=== PATIENT | female | born 1955 | race African-American/Black ===

== ENCOUNTER 2017-08-06 15:33 | Inpatient (IN) | payer MEDICARE, MEDICAID ==
[2017-08-06 16:29] LABS: % EOSINOPHILS 0.8 % (0.0-5.0); % LYMPHOCYTES 15.9 % (20.0-50.0); % MONOCYTES 4.3 % (2.0-10.0); EOSINOPHILE ABSOLUTE 0.1 Th/cmm (0.1-0.4); HEMATOCRIT 40.2 % (41.0-60); MEAN CELL VOLUME 88.5 fl (81-100); MEAN CORPUSCULAR HEMOGLOBIN 28.6 pg (27.0-31.0); MEAN CORPUSCULAR HGB CONC 32.4 pg (28.0-36.0); MEAN PLATELET VOLUME 8.2 fl; MONOCYTE ABSOLUTE 0.5 Th/cmm (0.3-1.0); PLATELET COUNT 247 Th/cmm (150-400); RED BLOOD COUNT 4.54 Mil/cmm (3.80-5.10); RED CELL DISTRIBUTION WIDTH 15.2 % (11.5-20.0)
[2017-08-06 16:38] LABS: WHITE BLOOD COUNT 12.6 Th/cmm (4.8-10.8)
[2017-08-06 16:49] LABS: ALB/GLOB RATIO 1.8 (1.0-1.8); ALBUMIN 4.6 gm/dL (3.7-5.3); ANION GAP 12.8 (7.0-16.0); BILIRUBIN,TOTAL 0.5 mg/dL (0.3-1.0); CALCIUM SERUM 10.3 mg/dL (8.6-10.3); CREATININE - SERUM 1.2 mg/dL (0.6-1.2); GFR AFRICAN-AMERICAN 58.4 ml/min (>90); GFR NON AFRICAN-AMERICAN 48.2 ml/min; POTASSIUM SERUM 3.8 mEq/L (3.5-5.1); TOTAL PROTEIN,SERUM 7.1 gm/dL (6.0-8.3)
--- NOTE | 2017-08-06 17:00 | ED Physician Chart ---
ED Chief Complaint/HPI - Patient Information Date Seen:: 08/06/17 Time Seen:: 16:55 Chief Complaint:: aggressive and disruptive behavior History of Present Illness:: Patient is sent here to be admitted to [facility] for the aggressive, disruptive behavior she was exhibiting at her [facility] facility. Allergies:: Allergies Allergy/AdvReac Type Severity Reaction Status Date / Time No Known Allergies Allergy Verified 08/06/17 16:31 Vitals:: Vital Signs - 8 hr 08/06/17 16:32 Temp 98.6 F HR 105 RR 21 BP 103/78 O2 Sat % 97 Review:: Transfer documents Reviewed ED Review of Systems - Review of Systems General/Constitutional: No fever, No chills Skin: No skin lesions Head: No headache Eyes: No loss of vision ENT: No earache Neck: No neck pain, No swelling Cardio Vascular: No chest pain, No palpitations Pulmonary: No SOB GI: No nausea, No vomiting, No diarrhea G/U: No dysuria Musculoskeletal: No bone or joint pain Endocrine: No polyuria, No polydipsia Psychiatric: Prior psych history, No depression, No anxiety Hematopoietic: No bruising Allergic/Immuno: No urticaria Neurological: Syncope ED Past Medical History - Past Medical History Past Medical History: DM (schizophrenia), Other Family History: Other (unavailable) Social History: Care Facility, Other (former smoker) Surgical History: other (not available) Psychiatricy History: Schizophrenia Medication: Reviewed ED Physical Exam - Physical Examination General/Constitutional: Well-developed, well-nourished, Alert, No distress Other Gen/Cons comments:: Answers minimally Head: Atraumatic Eyes: Lids, conjuctiva normal, PERRL Skin: Nl inspection, No rash, No skin lesions, No ecchymosis ENMT: External ears, nose nl, TM canals nl, Nasal exam nl Other ENMT comments:: Edentulous Neck: No nuchal rigidity Respiratory: Nl effort/Exclusion, Clear to Auscultation, No Wheeze/Rhonchi/Rales Cardio Vascular: RRR, No murmur, gallop, rubs GI: No tenderness/rebounding/guarding, No organomegaly, No hernia, Normal BS's : No CVA tenderness Extremities: Normal digits & nails Neuro/Psych: No focal deficits Misc: No paraspinal tenderness ED Labs/Radiology/EKG Results - Lab Results Results: Laboratory Tests 08/06/17 16:20 WBC 12.6 H RBC 4.54 Hgb 13.0 Hct 40.2 L MCV 88.5 MCH 28.6 MCHC Differential 32.4 RDW 15.2 Plt Count 247 MPV 8.2 Neutrophils % 79.0 Lymphocytes % 15.9 L Monocytes % 4.3 Eosinophils % 0.8 Basophils % 0.0 Laboratory Results - last 24 hr 08/06/17 08/06/17 08/06/17 16:20 16:20 16:20 WBC 12.6 H RBC 4.54 Hgb 13.0 Hct 40.2 L MCV 88.5 MCH 28.6 MCHC Differential 32.4 RDW 15.2 Plt Count 247 MPV 8.2 Neutrophils % 79.0 Lymphocytes % 15.9 L Monocytes % 4.3 Eosinophils % 0.8 Basophils % 0.0 Sodium 129 L Potassium 3.8 Chloride 95 L Carbon Dioxide 25.0 Anion Gap 12.8 BUN 19 Creatinine 1.2 Est GFR ( Amer) 58.4 Est GFR (Non-Af Amer) 48.2 BUN/Creatinine Ratio 15.8 Glucose 98 Whole Bld Lactic Acid Calcium 10.3 Total Bilirubin 0.5 AST 11 L ALT 7 Alkaline Phosphatase 82 Total Protein 7.1 Albumin 4.6 Globulin 2.5 Albumin/Globulin Ratio 1.8 Triglycerides 104 Cholesterol 124 LDL Cholesterol Direct 53 L HDL Cholesterol 52 TSH 1.14 08/06/17 16:20 WBC RBC Hgb Hct MCV MCH MCHC Differential RDW Plt Count MPV Neutrophils % Lymphocytes % Monocytes % Eosinophils % Basophils % Sodium Potassium Chloride Carbon Dioxide Anion Gap BUN Creatinine Est GFR ( Amer) Est GFR (Non-Af Amer) BUN/Creatinine Ratio Glucose Whole Bld Lactic Acid 1.02 Calcium Total Bilirubin AST ALT Alkaline Phosphatase Total Protein Albumin Globulin Albumin/Globulin Ratio Triglycerides Cholesterol LDL Cholesterol Direct HDL Cholesterol TSH ED Septic Shock - . Is Septic Shock (SBP<90, OR Lactate>4 mmol\L) present?: No - <6hrs of presentation: Vital Signs: Vital Signs - 8 hr 08/06/17 16:32 Temp 98.6 F HR 105 RR 21 BP 103/78 O2 Sat % 97 ED Reassessment (Disposition) - Reassessment Reassessment:: Because of the leukocytosis chest x-ray was done which was normal; we're currently trying to get a urinalysis to rule out a urinary tract infection Reassessment Condition:: Unchanged - Diagnosis Diagnosis:: Aggressive behavior; schizophrenia; cytosis - Aftercare/Follow up Instructions Aftercare/Follow-Up Instructions:: Refer to Discharge Instructions - Patient Disposition Admitted to:: [facility] Admitting Medical Physician:: Vamsi Templeton Admitting Psych Physician:: Claudia Viveros Condition at Disposition:: Stable, Unchanged ED Discharge Plan - Patient Disposition Instructions: Psychosis
[2017-08-06 18:24] LABS: URINE MICROSCOPIC INDICATED? YES; URINE SOURCE CLEAN C
[2017-08-06 18:31] LABS: URINE BILIRUBIN NEGATIVE (NEGATIVE); URINE BLOOD NEGATIVE (NEGATIVE); URINE GLUCOSE (UA) NEGATIVE (NEGATIVE); URINE KETONE 15 mg/dL (NEGATIVE); URINE LEUKOCYTE ESTERASE SMALL (NEGATIVE); URINE NITRATE NEGATIVE (NEGATIVE); URINE PROTEIN TRACE mg/dL (NEGATIVE); URINE UROBILINOGEN 0.2 E.U./dL (0.2 - 1.0)
[2017-08-06 18:53] LABS: URINE CLARITY TURBID (CLEAR); URINE COLOR YELLOW
[2017-08-06 18:54] LABS: URINE BACTERIA FEW /hpf (NONE SEEN); URINE EPITHELIAL CELLS MANY /lpf (FEW); URINE RBC NONE SEEN /hpf (0-5)
--- NOTE | 2017-08-06 19:27 | History & Physical ---
ADMIT DATE: 08/06/2017 HISTORY OF PRESENT ILLNESS: The patient is a 62-year-old female with long history of diabetes mellitus, hypertension, hyperlipidemia, COPD, dementia, psychosis, [facility] under Dr. Viveros's service. The patient denies any chest pain, shortness of breath, nausea, vomiting, fever or chills. PAST MEDICAL HISTORY: Significant for hypertension, diabetes mellitus, hyperlipidemia, COPD, psychosis, dementia. PAST SURGICAL HISTORY: No recent surgery. ALLERGIES: None. MEDICATIONS: Follow admission reconciliation. SOCIAL HISTORY: She is an ex-smoker, no alcohol or drug use. FAMILY HISTORY: Noncontributory. REVIEW OF SYSTEMS: RENAL SYSTEM: No history of chronic renal disorder. CARDIOVASCULAR: No coronary artery disease. ENDOCRINE: She has a history of diabetes mellitus, no thyroid problem. GASTROINTESTINAL: No upper or lower gastrointestinal bleed. NEUROLOGICAL: History of dementia, psychosis. MUSCULOSKELETAL : No muscular dystrophy. HEMATOLOGIC: No bleeding tendencies. RESPIRATORY : She has history of COPD. GENITOURINARY: No dysuria or hematuria. PHYSICAL EXAMINATION: GENERAL: She is awake, alert, not fully oriented. VITAL SIGNS: Temperature is 98, heart rate is 88, blood pressure 110/80. HEENT: Normocephalic. Pupils reacting equal to light and accommodation. Sclerae clear. NECK: Supple. Negative for lymphadenopathy, JVD or bruit. CHEST: Bilateral normal. No rhonchi or wheezing. HEART: S1, S2 normal. No murmur, rub, click. ABDOMEN: Soft, bowel sounds positive. EXTREMITIES: No edema. BACK: No tenderness. SKIN: Intact. BREASTS, PELVIC, AND RECTAL: Exam done by primary physician, no complaint. NEUROLOGIC: She is awake, alert, not fully oriented. No focal motor or sensory deficit. Cranial nerves 2-12 is intact. LABORATORY DATA: White blood cell 12.6, hemoglobin 13, hematocrit 40.2, platelet 247. Sodium 129, potassium 3.8, BUN 19, creatinine 1.2. ASSESSMENT: 1. Diabetes mellitus. 2. Hypertension. 3. Hyperlipidemia. 4. Hyponatremia. 5. Dementia. 6. Psychosis. PLAN: The patient admitted to the hospital under Dr. Viveros's service. MEDICAL PROBLEMS ADDRESSED DURING HOSPITALIZATION: Dementia and psychosis. MEDICAL PROBLEMS ADDRESSED AT DISCHARGE: Diabetes mellitus, hypertension, hyperlipidemia. The patient is medically stable for activity. Thank you Dr. Viveros for asking me to see your patient. JOB# [id number]
[2017-08-06] MEDS ORDERED: Magnesium Hydroxide (MOM) 30 mL UDC PO PRN (19:50)
[2017-08-06] MEDS ORDERED: Maalox 30 mL Cup PO PRN (19:50)
[2017-08-06 19:55] LABS: A1C % 5.3 % (4.0-6.0)
[2017-08-06 20:01] VITALS: BP 118/60
[2017-08-06] MEDS ORDERED: Non-Formulary Item 1 EA (Albuterol Sulfate [Ventolin Hfa] 1 PUFF) IH PRN (20:16)
[2017-08-06] MEDS: Atorvastatin Calcium 10 MG TAB PO SCH (21:11)
[2017-08-06] MEDS: INSULIN ASPART SLIDING SCALE 100 UNITS/ML UNIT SUBQ SCH (21:12)
[2017-08-07] MEDS: INSULIN ASPART SLIDING SCALE 100 UNITS/ML UNIT SUBQ SCH ×4 (07:04→21:00)
--- NOTE | 2017-08-07 07:36 | Diagnostic Imaging Report ---
Portable chest x-ray History: Leukocytosis, cough Allowing for portable technique the heart size is normal. No focal pulmonary parenchymal processes. No hilar or mediastinal abnormalities. Impression: No acute abnormalities.
[2017-08-07] MEDS ORDERED: Albuterol Nebulizer 2.5mg/3mL HHN PRN (07:55)
[2017-08-07] MEDS ORDERED: Non-Formulary Item 1 EA (Fluticasone/Vilanterol [Breo Ellipta 200-25 Mcg Inh] 1 EACH) IH SCH (09:00)
[2017-08-07] MEDS ORDERED: LURASIDONE HCL 60 MG PO SCH (09:00)
[2017-08-07] MEDS: Multivitamin Tab PO SCH (09:57)
[2017-08-07] MEDS: Pantoprazole 40 mg EC Tab PO SCH (10:00)
[2017-08-07] MEDS ORDERED: Non-Formulary Item 1 EA (Metformin Hcl [Fortamet] 1,000 MG) PO SCH (17:00)
[2017-08-07] MEDS: Atorvastatin Calcium 10 MG TAB PO SCH (21:00)
--- NOTE | 2017-08-07 23:20 | History & Physical ---
ADMIT DATE: 08/07/2017 IDENTIFYING INFORMATION: The patient is a 62-year-old female. HISTORY OF PRESENT ILLNESS: The patient was send from [facility] because of aggressive behavior, disruptive, psychotic. The patient herself was a poor historian and was unable to participate in a meaningful conversation or tell me anything about her history. She is demented. PAST PSYCHIATRIC HISTORY: Dementia. MEDICAL HISTORY: Hypertension, diabetes mellitus, hyperlipidemia, COPD with history of psychosis and dementia. ALLERGIES: She has no known drug allergies. FAMILY AND SOCIAL HISTORY: Unobtainable. The patient lives in a group home facility. MENTAL STATUS EXAMINATION: The patient is appropriately dressed, not very well groomed. She was in hospital gown. She was in bed, looking disheveled, unable to tell me her age, date, where she was, date of , or any information regarding her background. Unable to participate in memory testing or quite a meaningful conversation. Her long and short term memory is poor. Her insight and judgment is impaired. IMPRESSION: AXIS I: Psychosis, not otherwise specified, dementia. MEDICAL DIAGNOSES: Hypertension, diabetes mellitus, asthma, and hyperlipidemia. Her assets, she is accepting. Negative for coping. INITIAL TREATMENT PLAN: The patient will continue with the Paxil and she is on Clozaril 150 mg twice a day and Risperdal 2.5 mg twice a day. It seems like she is also on Latuda, so we will continue her medications. ESTIMATED LENGTH OF STAY: 3-7 days. DISCHARGE CRITERIA: Decreased psychosis and agitation. After discharge, outpatient treatment. [facility]# [id number]
--- NOTE | 2017-08-08 00:26 | Internal Medicine Prog Note ---
Internal Medicine Subjective - Subjective Service Date: 08/07/17 Patient seen and examined:: without staff Patient is:: awake, verbal, in bed, confused Per staff patient has:: no adverse event Internal Medicine Objective - Results Result Diagrams: 08/06/17 16:20 08/06/17 16:20 Recent Labs: Laboratory Last Values WBC 12.6 Th/cmm (4.8-10.8) H 08/06/17 16:20 RBC 4.54 Mil/cmm (3.80-5.10) 08/06/17 16:20 Hgb 13.0 gm/dL (12-16) 08/06/17 16:20 Hct 40.2 % (41.0-60) L 08/06/17 16:20 MCV 88.5 fl (81-100) 08/06/17 16:20 MCH 28.6 pg (27.0-31.0) 08/06/17 16:20 MCHC Differential 32.4 pg (28.0-36.0) 08/06/17 16:20 RDW 15.2 % (11.5-20.0) 08/06/17 16:20 Plt Count 247 Th/cmm (150-400) 08/06/17 16:20 MPV 8.2 fl 08/06/17 16:20 Neutrophils % 79.0 % (40.0-80.0) 08/06/17 16:20 Lymphocytes % 15.9 % (20.0-50.0) L 08/06/17 16:20 Monocytes % 4.3 % (2.0-10.0) 08/06/17 16:20 Eosinophils % 0.8 % (0.0-5.0) 08/06/17 16:20 Basophils % 0.0 % (0.0-2.0) 08/06/17 16:20 Sodium 129 mEq/L (136-145) L 08/06/17 16:20 Potassium 3.8 mEq/L (3.5-5.1) 08/06/17 16:20 Chloride 95 mEq/L (98-107) L 08/06/17 16:20 Carbon Dioxide 25.0 mEq/L (21.0-31.0) 08/06/17 16:20 Anion Gap 12.8 (7.0-16.0) 08/06/17 16:20 BUN 19 mg/dL (7-25) 08/06/17 16:20 Creatinine 1.2 mg/dL (0.6-1.2) 08/06/17 16:20 Est GFR ( Amer) 58.4 ml/min (>90) 08/06/17 16:20 Est GFR (Non-Af Amer) 48.2 ml/min 08/06/17 16:20 BUN/Creatinine Ratio 15.8 08/06/17 16:20 Glucose 98 mg/dL (70-105) 08/06/17 16:20 POC Glucose 99 MG/DL (70 - 105) 08/07/17 20:36 Hemoglobin A1c % 5.3 % (4.0-6.0) 08/06/17 16:20 Whole Bld Lactic Acid 1.02 mmol/L (0.60-1.99) 08/06/17 16:20 Calcium 10.3 mg/dL (8.6-10.3) 08/06/17 16:20 Total Bilirubin 0.5 mg/dL (0.3-1.0) 08/06/17 16:20 AST 11 U/L (13-39) L 08/06/17 16:20 ALT 7 U/L (7-52) 08/06/17 16:20 Alkaline Phosphatase 82 U/L (34-104) 08/06/17 16:20 Total Protein 7.1 gm/dL (6.0-8.3) 08/06/17 16:20 Albumin 4.6 gm/dL (3.7-5.3) 08/06/17 16:20 Globulin 2.5 gm/dL 08/06/17 16:20 Albumin/Globulin Ratio 1.8 (1.0-1.8) 08/06/17 16:20 Triglycerides 104 mg/dL (<150) 08/06/17 16:20 Cholesterol 124 mg/dL (<200) 08/06/17 16:20 LDL Cholesterol Direct 53 mg/dL (75-193) L 08/06/17 16:20 HDL Cholesterol 52 mg/dL (23-92) 08/06/17 16:20 TSH 1.14 uIU/ml (0.34-5.60) 08/06/17 16:20 Urine Source CLEAN C 08/06/17 17:30 Urine Color YELLOW 08/06/17 17:30 Urine Clarity TURBID (CLEAR) H 08/06/17 17:30 Urine pH 6.0 (4.6 - 8.0) 08/06/17 17:30 Ur Specific [place] 1.010 (1.005-1.030) 08/06/17 17:30 Urine Protein TRACE mg/dL (NEGATIVE) 08/06/17 17:30 Urine Glucose (UA) NEGATIVE mg/dL (NEGATIVE) 08/06/17 17:30 Urine Ketones 15 mg/dL (NEGATIVE) H 08/06/17 17:30 Urine Blood NEGATIVE (NEGATIVE) 08/06/17 17:30 Urine Nitrate NEGATIVE (NEGATIVE) 08/06/17 17:30 Urine Bilirubin NEGATIVE (NEGATIVE) 08/06/17 17:30 Urine Urobilinogen 0.2 E.U./dL (0.2 - 1.0) 08/06/17 17:30 Ur Leukocyte Esterase SMALL (NEGATIVE) H 08/06/17 17:30 Urine RBC NONE SEEN /hpf (0-5) 08/06/17 17:30 Urine WBC 6-10 /hpf (0-5) H 08/06/17 17:30 Ur Epithelial Cells MANY /lpf (FEW) 08/06/17 17:30 Urine Bacteria FEW /hpf (NONE SEEN) 08/06/17 17:30 RPR NONREACTIVE (NONREACTIVE) 08/06/17 16:20 - Physical Exam Vitals and I&O: Vital Signs Temp 98.1 F 08/07/17 16:21 Pulse 85 08/07/17 16:21 Resp 20 08/07/17 16:21 BP 122/67 08/07/17 16:21 Pulse Ox 99 08/07/17 16:21 Intake & Output 08/07/17 08/07/17 08/08/17 06:59 18:59 06:59 Intake Total 560 500 Balance 560 500 Intake: Oral 560 500 Other: # Voids 1 2 Active Medications: Current Medications Acetaminophen (Tylenol) 650 mg PO Q4HR PRN PRN Reason: Mild Pain / Temp above 100 Stop: 10/05/17 19:49 Last Admin: 08/07/17 18:47 Dose: 650 mg Al Hydrox/Mg Hydrox/Simethicone (Maalox) 30 ml PO Q4HR PRN PRN Reason: GI DISTRESS Stop: 10/05/17 19:49 Albuterol Sulfate (Albuterol 2.5mg/3ml Neb Ud) 2.5 mg HHN Q4H PRN PRN Reason: Shortness of Breath Stop: 10/06/17 07:54 Albuterol Sulfate (Albuterol 2.5mg/3ml Neb Ud) 2.5 mg HHN Q6HRT VERONIQUE Stop: 10/06/17 12:59 Amlodipine Besylate (Norvasc) 10 mg PO DAILY VERONIQUE Stop: 10/06/17 08:59 Last Admin: 08/07/17 10:26 Dose: 10 mg Atorvastatin Calcium (Lipitor) 20 mg PO HS VERONIQUE Stop: 10/05/17 20:59 Last Admin: 08/07/17 21:00 Dose: Not Given Benztropine Mesylate (Cogentin) 0.5 mg PO BID VERONIQUE Stop: 10/06/17 08:59 Last Admin: 08/07/17 16:49 Dose: 0.5 mg Budesonide (Pulmicort) 0.5 mg HHN BIDRT VERONIQUE Stop: 10/06/17 08:59 Clozapine (Clozaril) 150 mg PO BID VERONIQUE Stop: 10/06/17 14:59 Last Admin: 08/07/17 18:47 Dose: Not Given Insulin Aspart (Novolog Insulin Sliding Scale) 0 units SUBQ ACHS VERONIQUE PRN Reason: Protocol Stop: 10/05/17 20:59 Last Admin: 08/07/17 21:00 Dose: Not Given Lorazepam (Ativan) 0.5 mg PO Q4HR PRN; Protocol PRN Reason: Anxiety Stop: 09/05/17 19:49 Magnesium Hydroxide (Milk Of Magnesia) 30 ml PO HS PRN PRN Reason: Constipation Metformin HCl (Glucophage) 1,000 mg PO BIDWM VERONIQUE Stop: 10/06/17 08:59 Last Admin: 08/07/17 18:43 Dose: 1,000 mg Miscellaneous (Lurasidone Hcl [Latuda]) 60 mg PO DAILY VERONIQUE Stop: 10/06/17 08:59 Multivitamins/Vitamin C (Theragran) 1 tab PO DAILY VERONIQUE Stop: 10/06/17 08:59 Last Admin: 08/07/17 09:57 Dose: 1 tab Pantoprazole Sodium (Protonix) 40 mg PO QDAC VERONIQUE Stop: 10/06/17 08:59 Last Admin: 08/07/17 10:00 Dose: 40 mg Paroxetine HCl (Paxil) 40 mg PO DAILY VERONIQUE PRN Reason: Protocol Stop: 10/06/17 08:59 Last Admin: 08/07/17 09:57 Dose: 40 mg Pioglitazone HCl (Actos) 30 mg PO DAILY VERONIQUE Stop: 10/06/17 08:59 Last Admin: 08/07/17 09:57 Dose: 30 mg Risperidone (Risperdal) 2.5 mg PO BID VERONIQUE PRN Reason: Protocol Stop: 10/06/17 08:59 Last Admin: 08/07/17 18:47 Dose: Not Given Sitagliptin Phosphate (Januvia) 100 mg PO DAILY [facility] Stop: 10/06/17 08:59 Last Admin: 08/07/17 09:56 Dose: 100 mg Zolpidem Tartrate (Ambien) 5 mg PO HS PRN PRN Reason: Insomnia Stop: 10/05/17 19:49 Last Admin: 08/06/17 21:11 Dose: 5 mg General: demented HEENT: NC/AT, PERRLA, anicteric sclerae, throat clear Neck: Supple, No JVD, No thyromegaly, +2 carotid pulse wo bruit, No LAD Lungs: CTAB Cardiovascular: RRR, Normal S1, Normal S2, without murmur Abdomen: non-tender, non-distended Neurological: no change Internal Medicine Assmt/Plan - Assessment Assessment: 1.DM. 2.HTN 3.HYPERLIPIDEMEA. 4.DEMENTIA. - Plan Plan: CONTINUE ON CURRENT MEDICATION AND DIET.
[2017-08-08] MEDS: Budesonide 0.5 Mg/2 mL Ud HHN SCH ×2 (06:00→20:28)
[2017-08-08] MEDS: Albuterol Nebulizer 2.5mg/3mL HHN SCH ×3 (06:00→20:25)
[2017-08-08] MEDS: Pantoprazole 40 mg EC Tab PO SCH (06:36)
[2017-08-08] MEDS: INSULIN ASPART SLIDING SCALE 100 UNITS/ML UNIT SUBQ SCH ×4 (06:36→22:09)
[2017-08-08] MEDS ORDERED: Non-Formulary Item 1 EA (Sitagliptin Phosphate [Januvia] 100 MG) PO SCH (09:00)
[2017-08-08] MEDS: Multivitamin Tab PO SCH (09:49)
--- NOTE | 2017-08-08 15:25 | General Progress Note ---
Subjective - Review of Systems Service Date: 08/08/17 Subjective: resting comfortably no distress Objective - Results Result Diagrams: 08/06/17 16:20 08/06/17 16:20 Recent Labs: Laboratory Last Values WBC 12.6 Th/cmm (4.8-10.8) H 08/06/17 16:20 RBC 4.54 Mil/cmm (3.80-5.10) 08/06/17 16:20 Hgb 13.0 gm/dL (12-16) 08/06/17 16:20 Hct 40.2 % (41.0-60) L 08/06/17 16:20 MCV 88.5 fl (81-100) 08/06/17 16:20 MCH 28.6 pg (27.0-31.0) 08/06/17 16:20 MCHC Differential 32.4 pg (28.0-36.0) 08/06/17 16:20 RDW 15.2 % (11.5-20.0) 08/06/17 16:20 Plt Count 247 Th/cmm (150-400) 08/06/17 16:20 MPV 8.2 fl 08/06/17 16:20 Neutrophils % 79.0 % (40.0-80.0) 08/06/17 16:20 Lymphocytes % 15.9 % (20.0-50.0) L 08/06/17 16:20 Monocytes % 4.3 % (2.0-10.0) 08/06/17 16:20 Eosinophils % 0.8 % (0.0-5.0) 08/06/17 16:20 Basophils % 0.0 % (0.0-2.0) 08/06/17 16:20 Sodium 129 mEq/L (136-145) L 08/06/17 16:20 Potassium 3.8 mEq/L (3.5-5.1) 08/06/17 16:20 Chloride 95 mEq/L (98-107) L 08/06/17 16:20 Carbon Dioxide 25.0 mEq/L (21.0-31.0) 08/06/17 16:20 Anion Gap 12.8 (7.0-16.0) 08/06/17 16:20 BUN 19 mg/dL (7-25) 08/06/17 16:20 Creatinine 1.2 mg/dL (0.6-1.2) 08/06/17 16:20 Est GFR ( Amer) 58.4 ml/min (>90) 08/06/17 16:20 Est GFR (Non-Af Amer) 48.2 ml/min 08/06/17 16:20 BUN/Creatinine Ratio 15.8 08/06/17 16:20 Glucose 98 mg/dL (70-105) 08/06/17 16:20 POC Glucose 99 MG/DL (70 - 105) 08/07/17 20:36 Hemoglobin A1c % 5.3 % (4.0-6.0) 08/06/17 16:20 Whole Bld Lactic Acid 1.02 mmol/L (0.60-1.99) 08/06/17 16:20 Calcium 10.3 mg/dL (8.6-10.3) 08/06/17 16:20 Total Bilirubin 0.5 mg/dL (0.3-1.0) 08/06/17 16:20 AST 11 U/L (13-39) L 08/06/17 16:20 ALT 7 U/L (7-52) 08/06/17 16:20 Alkaline Phosphatase 82 U/L (34-104) 08/06/17 16:20 Total Protein 7.1 gm/dL (6.0-8.3) 08/06/17 16:20 Albumin 4.6 gm/dL (3.7-5.3) 08/06/17 16:20 Globulin 2.5 gm/dL 08/06/17 16:20 Albumin/Globulin Ratio 1.8 (1.0-1.8) 08/06/17 16:20 Triglycerides 104 mg/dL (<150) 08/06/17 16:20 Cholesterol 124 mg/dL (<200) 08/06/17 16:20 LDL Cholesterol Direct 53 mg/dL (75-193) L 08/06/17 16:20 HDL Cholesterol 52 mg/dL (23-92) 08/06/17 16:20 TSH 1.14 uIU/ml (0.34-5.60) 08/06/17 16:20 Urine Source CLEAN C 08/06/17 17:30 Urine Color YELLOW 08/06/17 17:30 Urine Clarity TURBID (CLEAR) H 08/06/17 17:30 Urine pH 6.0 (4.6 - 8.0) 08/06/17 17:30 Ur Specific [place] 1.010 (1.005-1.030) 08/06/17 17:30 Urine Protein TRACE mg/dL (NEGATIVE) 08/06/17 17:30 Urine Glucose (UA) NEGATIVE mg/dL (NEGATIVE) 08/06/17 17:30 Urine Ketones 15 mg/dL (NEGATIVE) H 08/06/17 17:30 Urine Blood NEGATIVE (NEGATIVE) 08/06/17 17:30 Urine Nitrate NEGATIVE (NEGATIVE) 08/06/17 17:30 Urine Bilirubin NEGATIVE (NEGATIVE) 08/06/17 17:30 Urine Urobilinogen 0.2 E.U./dL (0.2 - 1.0) 08/06/17 17:30 Ur Leukocyte Esterase SMALL (NEGATIVE) H 08/06/17 17:30 Urine RBC NONE SEEN /hpf (0-5) 08/06/17 17:30 Urine WBC 6-10 /hpf (0-5) H 08/06/17 17:30 Ur Epithelial Cells MANY /lpf (FEW) 08/06/17 17:30 Urine Bacteria FEW /hpf (NONE SEEN) 08/06/17 17:30 RPR NONREACTIVE (NONREACTIVE) 08/06/17 16:20 - Physical Exam Vitals and I&O: Vital Signs Temp 98.8 F 08/08/17 07:28 Pulse 110 08/08/17 11:31 Resp 16 08/08/17 11:31 BP 101/60 08/08/17 09:53 Pulse Ox 88 08/08/17 11:31 Intake & Output 08/07/17 08/08/17 08/08/17 18:59 06:59 18:59 Intake Total 500 320 Balance 500 320 Intake: Oral 500 320 Other: # Voids 2 2 Active Medications: Current Medications Acetaminophen (Tylenol) 650 mg PO Q4HR PRN PRN Reason: Mild Pain / Temp above 100 Stop: 10/05/17 19:49 Last Admin: 08/07/17 18:47 Dose: 650 mg Al Hydrox/Mg Hydrox/Simethicone (Maalox) 30 ml PO Q4HR PRN PRN Reason: GI DISTRESS Stop: 10/05/17 19:49 Albuterol Sulfate (Albuterol 2.5mg/3ml Neb Ud) 2.5 mg HHN Q4H PRN PRN Reason: Shortness of Breath Stop: 10/06/17 07:54 Albuterol Sulfate (Albuterol 2.5mg/3ml Neb Ud) 2.5 mg HHN Q6HRT VERONIQUE Stop: 10/06/17 12:59 Last Admin: 08/08/17 11:31 Dose: 2.5 mg Amlodipine Besylate (Norvasc) 10 mg PO DAILY VERONIQUE Stop: 10/06/17 08:59 Last Admin: 08/08/17 09:53 Dose: Not Given Atorvastatin Calcium (Lipitor) 20 mg PO HS VERONIQUE Stop: 10/05/17 20:59 Last Admin: 08/07/17 21:00 Dose: Not Given Benztropine Mesylate (Cogentin) 0.5 mg PO BID VERONIQUE Stop: 10/06/17 08:59 Last Admin: 08/08/17 09:51 Dose: 0.5 mg Budesonide (Pulmicort) 0.5 mg HHN BIDRT VERONIQUE Stop: 10/06/17 08:59 Last Admin: 08/08/17 06:00 Dose: 0.5 mg Clozapine (Clozaril) 150 mg PO BID VERONIQUE Stop: 10/06/17 14:59 Last Admin: 08/08/17 09:50 Dose: 150 mg Insulin Aspart (Novolog Insulin Sliding Scale) 0 units SUBQ ACHS VERONIQUE PRN Reason: Protocol Stop: 10/05/17 20:59 Last Admin: 08/08/17 11:45 Dose: Not Given Lorazepam (Ativan) 0.5 mg PO Q4HR PRN; Protocol PRN Reason: Anxiety Stop: 09/05/17 19:49 Magnesium Hydroxide (Milk Of Magnesia) 30 ml PO HS PRN PRN Reason: Constipation Metformin HCl (Glucophage) 1,000 mg PO BIDWM VERONIQUE Stop: 10/06/17 08:59 Last Admin: 08/08/17 09:00 Dose: 1,000 mg Miscellaneous (Lurasidone Hcl [Latuda]) 60 mg PO DAILY VERONIQUE Stop: 10/06/17 08:59 Multivitamins/Vitamin C (Theragran) 1 tab PO DAILY VERONIQUE Stop: 10/06/17 08:59 Last Admin: 08/08/17 09:49 Dose: 1 tab Pantoprazole Sodium (Protonix) 40 mg PO QDAC VERONIQUE Stop: 10/06/17 08:59 Last Admin: 08/08/17 06:36 Dose: 40 mg Paroxetine HCl (Paxil) 40 mg PO DAILY VERONIQUE PRN Reason: Protocol Stop: 10/06/17 08:59 Last Admin: 08/08/17 09:50 Dose: 40 mg Pioglitazone HCl (Actos) 30 mg PO DAILY VERONIQUE Stop: 10/06/17 08:59 Last Admin: 08/08/17 09:50 Dose: 30 mg Risperidone (Risperdal) 2.5 mg PO BID VERONIQUE PRN Reason: Protocol Stop: 10/06/17 08:59 Last Admin: 08/08/17 09:51 Dose: 2.5 mg Sitagliptin Phosphate (Januvia) 100 mg PO DAILY [facility] Stop: 10/06/17 08:59 Last Admin: 08/08/17 09:54 Dose: 100 mg Zolpidem Tartrate (Ambien) 5 mg PO HS PRN PRN Reason: Insomnia Stop: 10/05/17 19:49 Last Admin: 08/06/17 21:11 Dose: 5 mg General: No acute distress HEENT: Atraumatic, PERRLA Neck: Supple, JVD Cardiovascular: Regular rate, Normal S1, Normal S2 Lungs: Clear to auscultation Abdomen: Bowel sounds, Soft Assessment/Plan - Problem List Patient Problems: All Active Problems AGGRESSIVE AND DISRUPTIVE BEHAVIOR (Acute) - Assessment Assessment: 1.DM. 2.HTN 3.HYPERLIPIDEMEA. 4.DEMENTIA. - Plan Plan: cont current treatment
--- NOTE | 2017-08-08 17:21 | Progress Notes ---
DATE: 08/08/[address] Viveros. Case was discussed with staff of the patient, reviewed records. The patient continues to be unpredictable, impulsive, responding to internal stimuli. Continues to have poor insight. Continues to be unable to make safe plan for self-care. Continues to be very agitated. No side effects with the medication, no sedation, no nausea, no extrapyramidal symptoms. The patient is a poor historian, but however, she is a bit more clear today seem like she is back on her medication. We will continue to work with the patient in group therapy, milieu therapy, adjust the medication as needed. JOB# [id number]
[2017-08-08] MEDS: Atorvastatin Calcium 10 MG TAB PO SCH (22:09)
[2017-08-09] MEDS: Albuterol Nebulizer 2.5mg/3mL HHN SCH ×4 (01:43→19:27)
[2017-08-09] MEDS: Budesonide 0.5 Mg/2 mL Ud HHN SCH ×2 (06:36→19:27)
[2017-08-09] MEDS: INSULIN ASPART SLIDING SCALE 100 UNITS/ML UNIT SUBQ SCH ×4 (06:37→21:57)
[2017-08-09] MEDS: Pantoprazole 40 mg EC Tab PO SCH (06:37)
--- NOTE | 2017-08-09 08:25 | General Progress Note ---
Subjective - Review of Systems Service Date: 08/09/17 Subjective: resting comfortably no distress c/o suprapubic pain Objective - Results Result Diagrams: 08/06/17 16:20 08/06/17 16:20 Recent Labs: Laboratory Last Values WBC 12.6 Th/cmm (4.8-10.8) H 08/06/17 16:20 RBC 4.54 Mil/cmm (3.80-5.10) 08/06/17 16:20 Hgb 13.0 gm/dL (12-16) 08/06/17 16:20 Hct 40.2 % (41.0-60) L 08/06/17 16:20 MCV 88.5 fl (81-100) 08/06/17 16:20 MCH 28.6 pg (27.0-31.0) 08/06/17 16:20 MCHC Differential 32.4 pg (28.0-36.0) 08/06/17 16:20 RDW 15.2 % (11.5-20.0) 08/06/17 16:20 Plt Count 247 Th/cmm (150-400) 08/06/17 16:20 MPV 8.2 fl 08/06/17 16:20 Neutrophils % 79.0 % (40.0-80.0) 08/06/17 16:20 Lymphocytes % 15.9 % (20.0-50.0) L 08/06/17 16:20 Monocytes % 4.3 % (2.0-10.0) 08/06/17 16:20 Eosinophils % 0.8 % (0.0-5.0) 08/06/17 16:20 Basophils % 0.0 % (0.0-2.0) 08/06/17 16:20 Sodium 129 mEq/L (136-145) L 08/06/17 16:20 Potassium 3.8 mEq/L (3.5-5.1) 08/06/17 16:20 Chloride 95 mEq/L (98-107) L 08/06/17 16:20 Carbon Dioxide 25.0 mEq/L (21.0-31.0) 08/06/17 16:20 Anion Gap 12.8 (7.0-16.0) 08/06/17 16:20 BUN 19 mg/dL (7-25) 08/06/17 16:20 Creatinine 1.2 mg/dL (0.6-1.2) 08/06/17 16:20 Est GFR ( Amer) 58.4 ml/min (>90) 08/06/17 16:20 Est GFR (Non-Af Amer) 48.2 ml/min 08/06/17 16:20 BUN/Creatinine Ratio 15.8 08/06/17 16:20 Glucose 98 mg/dL (70-105) 08/06/17 16:20 POC Glucose 99 MG/DL (70 - 105) 08/07/17 20:36 Hemoglobin A1c % 5.3 % (4.0-6.0) 08/06/17 16:20 Whole Bld Lactic Acid 1.02 mmol/L (0.60-1.99) 08/06/17 16:20 Calcium 10.3 mg/dL (8.6-10.3) 08/06/17 16:20 Total Bilirubin 0.5 mg/dL (0.3-1.0) 08/06/17 16:20 AST 11 U/L (13-39) L 08/06/17 16:20 ALT 7 U/L (7-52) 08/06/17 16:20 Alkaline Phosphatase 82 U/L (34-104) 08/06/17 16:20 Total Protein 7.1 gm/dL (6.0-8.3) 08/06/17 16:20 Albumin 4.6 gm/dL (3.7-5.3) 08/06/17 16:20 Globulin 2.5 gm/dL 08/06/17 16:20 Albumin/Globulin Ratio 1.8 (1.0-1.8) 08/06/17 16:20 Triglycerides 104 mg/dL (<150) 08/06/17 16:20 Cholesterol 124 mg/dL (<200) 08/06/17 16:20 LDL Cholesterol Direct 53 mg/dL (75-193) L 08/06/17 16:20 HDL Cholesterol 52 mg/dL (23-92) 08/06/17 16:20 TSH 1.14 uIU/ml (0.34-5.60) 08/06/17 16:20 Urine Source CLEAN C 08/06/17 17:30 Urine Color YELLOW 08/06/17 17:30 Urine Clarity TURBID (CLEAR) H 08/06/17 17:30 Urine pH 6.0 (4.6 - 8.0) 08/06/17 17:30 Ur Specific [place] 1.010 (1.005-1.030) 08/06/17 17:30 Urine Protein TRACE mg/dL (NEGATIVE) 08/06/17 17:30 Urine Glucose (UA) NEGATIVE mg/dL (NEGATIVE) 08/06/17 17:30 Urine Ketones 15 mg/dL (NEGATIVE) H 08/06/17 17:30 Urine Blood NEGATIVE (NEGATIVE) 08/06/17 17:30 Urine Nitrate NEGATIVE (NEGATIVE) 08/06/17 17:30 Urine Bilirubin NEGATIVE (NEGATIVE) 08/06/17 17:30 Urine Urobilinogen 0.2 E.U./dL (0.2 - 1.0) 08/06/17 17:30 Ur Leukocyte Esterase SMALL (NEGATIVE) H 08/06/17 17:30 Urine RBC NONE SEEN /hpf (0-5) 08/06/17 17:30 Urine WBC 6-10 /hpf (0-5) H 08/06/17 17:30 Ur Epithelial Cells MANY /lpf (FEW) 08/06/17 17:30 Urine Bacteria FEW /hpf (NONE SEEN) 08/06/17 17:30 RPR NONREACTIVE (NONREACTIVE) 08/06/17 16:20 - Physical Exam Vitals and I&O: Vital Signs Temp 98 F 08/09/17 06:38 Pulse 98 08/09/17 06:38 Resp 19 08/09/17 06:38 BP 115/68 08/09/17 06:38 Pulse Ox 98 08/09/17 06:38 Intake & Output 08/08/17 08/09/17 08/09/17 18:59 06:59 18:59 Intake Total 820 360 Balance 820 360 Intake: Oral 820 360 Other: # Voids 3 2 Active Medications: Current Medications Acetaminophen (Tylenol) 650 mg PO Q4HR PRN PRN Reason: Mild Pain / Temp above 100 Stop: 10/05/17 19:49 Last Admin: 08/07/17 18:47 Dose: 650 mg Al Hydrox/Mg Hydrox/Simethicone (Maalox) 30 ml PO Q4HR PRN PRN Reason: GI DISTRESS Stop: 10/05/17 19:49 Albuterol Sulfate (Albuterol 2.5mg/3ml Neb Ud) 2.5 mg HHN Q4H PRN PRN Reason: Shortness of Breath Stop: 10/06/17 07:54 Albuterol Sulfate (Albuterol 2.5mg/3ml Neb Ud) 2.5 mg HHN Q6HRT [facility] Stop: 10/06/17 12:59 Last Admin: 08/09/17 06:36 Dose: 2.5 mg Amlodipine Besylate (Norvasc) 10 mg PO DAILY [facility] Stop: 10/06/17 08:59 Last Admin: 08/08/17 09:53 Dose: Not Given Atorvastatin Calcium (Lipitor) 20 mg PO HS [facility] Stop: 10/05/17 20:59 Last Admin: 08/08/17 22:09 Dose: 20 mg Benztropine Mesylate (Cogentin) 0.5 mg PO BID [facility] Stop: 10/06/17 08:59 Last Admin: 08/08/17 16:21 Dose: 0.5 mg Budesonide (Pulmicort) 0.5 mg HHN BIDRT [facility] Stop: 10/06/17 08:59 Last Admin: 08/09/17 06:36 Dose: 0.5 mg Clozapine (Clozaril) 150 mg PO BID [facility] Stop: 10/06/17 14:59 Last Admin: 08/08/17 16:21 Dose: 150 mg Insulin Aspart (Novolog Insulin Sliding Scale) 0 units SUBQ ACHS [facility] PRN Reason: Protocol Stop: 10/05/17 20:59 Last Admin: 08/09/17 06:37 Dose: Not Given Lorazepam (Ativan) 0.5 mg PO Q4HR PRN; Protocol PRN Reason: Anxiety Stop: 09/05/17 19:49 Magnesium Hydroxide (Milk Of Magnesia) 30 ml PO HS PRN PRN Reason: Constipation Metformin HCl (Glucophage) 1,000 mg PO BIDWM [facility] Stop: 10/06/17 08:59 Last Admin: 08/09/17 08:07 Dose: 1,000 mg Miscellaneous (Lurasidone Hcl [Latuda]) 60 mg PO DAILY [facility] Stop: 10/06/17 08:59 Multivitamins/Vitamin C (Theragran) 1 tab PO DAILY [facility] Stop: 10/06/17 08:59 Last Admin: 08/08/17 09:49 Dose: 1 tab Pantoprazole Sodium (Protonix) 40 mg PO QDAC [facility] Stop: 10/06/17 08:59 Last Admin: 08/09/17 06:37 Dose: 40 mg Paroxetine HCl (Paxil) 40 mg PO DAILY [facility] PRN Reason: Protocol Stop: 10/06/17 08:59 Last Admin: 08/08/17 09:50 Dose: 40 mg Pioglitazone HCl (Actos) 30 mg PO DAILY [facility] Stop: 10/06/17 08:59 Last Admin: 08/08/17 09:50 Dose: 30 mg Risperidone (Risperdal) 2.5 mg PO BID [facility] PRN Reason: Protocol Stop: 10/06/17 08:59 Last Admin: 08/08/17 16:21 Dose: 2.5 mg Sitagliptin Phosphate (Januvia) 100 mg PO DAILY [facility] Stop: 10/06/17 08:59 Last Admin: 08/08/17 09:54 Dose: 100 mg Zolpidem Tartrate (Ambien) 5 mg PO HS PRN PRN Reason: Insomnia Stop: 10/05/17 19:49 Last Admin: 08/06/17 21:11 Dose: 5 mg General: No acute distress HEENT: Atraumatic, PERRLA Neck: Supple, JVD Cardiovascular: Regular rate, Normal S1, Normal S2 Lungs: Clear to auscultation Abdomen: Bowel sounds, Soft Assessment/Plan - Problem List Patient Problems: All Active Problems AGGRESSIVE AND DISRUPTIVE BEHAVIOR (Acute) - Assessment Assessment: 1.DM. 2.HTN 3.HYPERLIPIDEMEA. 4.DEMENTIA. - Plan Plan: cont current treatment order U/A
[2017-08-09] MEDS: Multivitamin Tab PO SCH (08:51)
[2017-08-09 16:02] LABS: URINE MICROSCOPIC INDICATED? YES; URINE SOURCE CLEAN C
[2017-08-09 16:07] LABS: URINE BILIRUBIN NEGATIVE (NEGATIVE); URINE BLOOD NEGATIVE (NEGATIVE); URINE GLUCOSE (UA) NEGATIVE (NEGATIVE); URINE KETONE NEGATIVE (NEGATIVE); URINE LEUKOCYTE ESTERASE NEGATIVE (NEGATIVE); URINE NITRATE NEGATIVE (NEGATIVE); URINE PROTEIN TRACE mg/dL (NEGATIVE); URINE UROBILINOGEN 0.2 E.U./dL (0.2 - 1.0)
[2017-08-09 16:09] LABS: URINE CLARITY CLEAR (CLEAR); URINE COLOR YELLOW
[2017-08-09 16:10] LABS: URINE BACTERIA FEW /hpf (NONE SEEN); URINE EPITHELIAL CELLS OCCASIONAL /lpf (FEW); URINE RBC NONE SEEN /hpf (0-5)
[2017-08-09] MEDS: Atorvastatin Calcium 10 MG TAB PO SCH (21:49)
--- NOTE | 2017-08-09 23:22 | Progress Notes ---
DATE: 08/09/[address] Viveros. Case was discussed with staff of the patient, reviewed records. The patient continues to be internally preoccupied, confused, continues to stay to herself, unable to make safe plan for self-care, unpredictable, impulsive, and with history of schizophrenia. No side effects of the medication, no sedation, no nausea. No constipation. We will continue the patient with group therapy, milieu therapy, and adjust medications. JOB# [id number]
[2017-08-10] MEDS: Albuterol Nebulizer 2.5mg/3mL HHN SCH ×4 (01:00→20:59)
[2017-08-10] MEDS: Pantoprazole 40 mg EC Tab PO SCH (06:30)
[2017-08-10] MEDS: INSULIN ASPART SLIDING SCALE 100 UNITS/ML UNIT SUBQ SCH ×4 (06:30→22:00)
[2017-08-10] MEDS: Budesonide 0.5 Mg/2 mL Ud HHN SCH ×2 (06:35→21:00)
[2017-08-10] MEDS: Multivitamin Tab PO SCH (08:54)
[2017-08-10 09:36] LABS: % BASOPHILS 0.8 % (0.0-2.0); % EOSINOPHILS 0.9 % (0.0-5.0); % NEUTROPHILS 69.3 % (40.0-80.0); BASOPHILE ABSOLUTE 0.1 Th/cumm (0-0.2); EOSINOPHILE ABSOLUTE 0.1 Th/cmm (0.1-0.4); HEMATOCRIT 38.9 % (41.0-60); HEMOGLOBIN 12.9 gm/dL (12-16); LYMPHOCYTE ABSOLUTE 2.5 Th/cmm (1.5-3.0); MEAN CELL VOLUME 89.2 fl (81-100); MEAN CORPUSCULAR HEMOGLOBIN 29.6 pg (27.0-31.0); MEAN CORPUSCULAR HGB CONC 33.2 pg (28.0-36.0); MEAN PLATELET VOLUME 8.4 fl; MONOCYTE ABSOLUTE 0.4 Th/cmm (0.3-1.0); NEUTROPHILE ABSOLUTE 6.7 Th/cmm (1.8-8.0); PLATELET COUNT 265 Th/cmm (150-400); RED BLOOD COUNT 4.37 Mil/cmm (3.80-5.10); RED CELL DISTRIBUTION WIDTH 15.3 % (11.5-20.0)
[2017-08-10 09:39] LABS: WHITE BLOOD COUNT 9.8 Th/cmm (4.8-10.8)
[2017-08-10 09:49] LABS: ANION GAP 10.9 (7.0-16.0); BUN - UREA NITROGEN 8 mg/dL (7-25); CALCIUM SERUM 9.9 mg/dL (8.6-10.3); CHLORIDE 98 mEq/L (98-107); CREATININE - SERUM 0.7 mg/dL (0.6-1.2); GFR AFRICAN-AMERICAN > 60.0 ml/min (>90); GFR NON AFRICAN-AMERICAN > 60.0 ml/min; GLUCOSE 140 mg/dL (70-105); POTASSIUM SERUM 3.9 mEq/L (3.5-5.1); SODIUM SERUM 134 mEq/L (136-145)
[2017-08-10] MEDS: Atorvastatin Calcium 10 MG TAB PO SCH (22:00)
--- NOTE | 2017-08-10 23:02 | Progress Notes ---
DATE: 08/10/2017 PSYCHIATRIC PROGRESS NOTE Chart reviewed. The patient interviewed. Also discussed the patient's condition with the staff and reviewed records and labs. The patient is still agitated and she is still anxious and in irritable mood. The patient also is slightly confused and needs lots of redirections. She also is still restless and she is still anxious. Otherwise, the patient is compliant with taking her medications with no side effects of medications. ASSESSMENT: The patient is still confused and irritable. TREATMENT PLAN: Continue to monitor her behavior and her condition closely. Also, continue to work on her irritability and adjusting psychotropic medications and continue to follow up. JOB# [id number]
--- NOTE | 2017-08-10 23:20 | Internal Medicine Prog Note ---
Internal Medicine Subjective - Subjective Service Date: 08/10/17 Patient seen and examined:: without staff Patient is:: awake, verbal, in bed, confused Per staff patient has:: no adverse event Internal Medicine Objective - Results Result Diagrams: 08/10/17 09:18 08/10/17 09:18 Recent Labs: Laboratory Last Values WBC 9.8 Th/cmm (4.8-10.8) D 08/10/17 09:18 RBC 4.37 Mil/cmm (3.80-5.10) 08/10/17 09:18 Hgb 12.9 gm/dL (12-16) 08/10/17 09:18 Hct 38.9 % (41.0-60) L 08/10/17 09:18 MCV 89.2 fl (81-100) 08/10/17 09:18 MCH 29.6 pg (27.0-31.0) 08/10/17 09: MCHC Differential 33.2 pg (28.0-36.0) 08/10/17:18 RDW 15.3 % (11.5-20.0) 08/10/17 09:18 Plt Count 265 Th/cmm (150-400) 08/10/17 09:18 MPV 8.4 fl 08/10/17 09:18 Neutrophils % 69.3 % (40.0-80.0) 08/10/17 09:18 Lymphocytes % 25.0 % (20.0-50.0) 08/10/17 09:18 Monocytes % 4.0 % (2.0-10.0) 08/10/17 09:18 Eosinophils % 0.9 % (0.0-5.0) 08/10/17 09:18 Basophils % 0.8 % (0.0-2.0) 08/10/17 09:18 Sodium 134 mEq/L (136-145) L 08/10/17 09:18 Potassium 3.9 mEq/L (3.5-5.1) 08/10/17 09:18 Chloride 98 mEq/L (98-107) 08/10/17 09:18 Carbon Dioxide 29.0 mEq/L (21.0-31.0) 08/10/17 09:18 Anion Gap 10.9 (7.0-16.0) 08/10/17 09:18 BUN 8 mg/dL (7-25) 08/10/17 09:18 Creatinine 0.7 mg/dL (0.6-1.2) 08/10/17 09:18 Est GFR ( Amer) > 60.0 ml/min (>90) 08/10/17 09:18 Est GFR (Non-Af Amer) > 60.0 ml/min 08/10/17 09:18 BUN/Creatinine Ratio 11.4 08/10/17 09:18 Glucose 140 mg/dL (70-105) H 08/10/17 09:18 POC Glucose 99 MG/DL (70 - 105) 08/07/17 20:36 Hemoglobin A1c % 5.3 % (4.0-6.0) 08/06/17 16:20 Whole Bld Lactic Acid 1.02 mmol/L (0.60-1.99) 08/06/17 16:20 Calcium 9.9 mg/dL (8.6-10.3) 08/10/17 09:18 Total Bilirubin 0.5 mg/dL (0.3-1.0) 08/06/17 16:20 AST 11 U/L (13-39) L 08/06/17 16:20 ALT 7 U/L (7-52) 08/06/17 16:20 Alkaline Phosphatase 82 U/L (34-104) 08/06/17 16:20 Total Protein 7.1 gm/dL (6.0-8.3) 08/06/17 16:20 Albumin 4.6 gm/dL (3.7-5.3) 08/06/17 16:20 Globulin 2.5 gm/dL 08/06/17 16:20 Albumin/Globulin Ratio 1.8 (1.0-1.8) 08/06/17 16:20 Triglycerides 104 mg/dL (<150) 08/06/17 16:20 Cholesterol 124 mg/dL (<200) 08/06/17 16:20 LDL Cholesterol Direct 53 mg/dL (75-193) L 08/06/17 16:20 HDL Cholesterol 52 mg/dL (23-92) 08/06/17 16:20 TSH 1.14 uIU/ml (0.34-5.60) 08/06/17 16:20 Urine Source CLEAN C 08/09/17 15:45 Urine Color YELLOW 08/09/17 15:45 Urine Clarity CLEAR (CLEAR) 08/09/17 15:45 Urine pH 6.0 (4.6 - 8.0) 08/09/17 15:45 Ur [address] [place] 1.025 (1.005-1.030) 08/09/17 15:45 Urine Protein TRACE mg/dL (NEGATIVE) 08/09/17 15:45 Urine Glucose (UA) NEGATIVE mg/dL (NEGATIVE) 08/09/17 15:45 Urine Ketones NEGATIVE mg/dL (NEGATIVE) 08/09/17 15:45 Urine Blood NEGATIVE (NEGATIVE) 08/09/17 15:45 Urine Nitrate NEGATIVE (NEGATIVE) 08/09/17 15:45 Urine Bilirubin NEGATIVE (NEGATIVE) 08/09/17 15:45 Urine Urobilinogen 0.2 E.U./dL (0.2 - 1.0) 08/09/17 15:45 Ur Leukocyte Esterase NEGATIVE (NEGATIVE) 08/09/17 15:45 Urine RBC NONE SEEN /hpf (0-5) 08/09/17 15:45 Urine WBC 2-5 /hpf (0-5) 08/09/17 15:45 Ur Epithelial Cells OCCASIONAL /lpf (FEW) 08/09/17 15:45 Urine Bacteria FEW /hpf (NONE SEEN) 08/09/17 15:45 RPR NONREACTIVE (NONREACTIVE) 08/06/17 16:20 - Physical Exam Vitals and I&O: Vital Signs Temp 97.9 F 08/10/17 22:25 Pulse 90 08/10/17 22:25 Resp 20 08/10/17 22:25 BP 123/63 08/10/17 22:25 Pulse Ox 89 08/10/17 22:25 Intake & Output 08/10/17 08/10/17 08/11/17 06:59 18:59 06:59 Intake Total 800 240 Balance 800 240 Intake: Oral 800 240 Other: # Voids 3 2 # Bowel Movements 1 0 Active Medications: Current Medications Acetaminophen (Tylenol) 650 mg PO Q4HR PRN PRN Reason: Mild Pain / Temp above 100 Stop: 10/05/17 19:49 Last Admin: 08/07/17 18:47 Dose: 650 mg Al Hydrox/Mg Hydrox/Simethicone (Maalox) 30 ml PO Q4HR PRN PRN Reason: GI DISTRESS Stop: 10/05/17 19:49 Albuterol Sulfate (Albuterol 2.5mg/3ml Neb Ud) 2.5 mg HHN Q4H PRN PRN Reason: Shortness of Breath Stop: 10/06/17 07:54 Albuterol Sulfate (Albuterol 2.5mg/3ml Neb Ud) 2.5 mg HHN Q6HRT [facility] Stop: 10/06/17 12:59 Last Admin: 08/10/17 20:59 Dose: 2.5 mg Amlodipine Besylate (Norvasc) 10 mg PO DAILY [facility] Stop: 10/06/17 08:59 Last Admin: 08/10/17 09:01 Dose: Not Given Atorvastatin Calcium (Lipitor) 20 mg PO HS [facility] Stop: 10/05/17 20:59 Last Admin: 08/10/17 22:00 Dose: 20 mg Benztropine Mesylate (Cogentin) 0.5 mg PO BID [facility] Stop: 10/06/17 08:59 Last Admin: 08/10/17 17:00 Dose: 0.5 mg Budesonide (Pulmicort) 0.5 mg HHN BIDRT [facility] Stop: 10/06/17 08:59 Last Admin: 08/10/17 21:00 Dose: 0.5 mg Clozapine (Clozaril) 150 mg PO BID [facility] Stop: 10/06/17 14:59 Last Admin: 08/10/17 17:01 Dose: 150 mg Insulin Aspart (Novolog Insulin Sliding Scale) 0 units SUBQ ACHS [facility] PRN Reason: Protocol Stop: 10/05/17 20:59 Last Admin: 08/10/17 22:00 Dose: Not Given Lorazepam (Ativan) 0.5 mg PO Q4HR PRN; Protocol PRN Reason: Anxiety Stop: 09/05/17 19:49 Magnesium Hydroxide (Milk Of Magnesia) 30 ml PO HS PRN PRN Reason: Constipation Metformin HCl (Glucophage) 1,000 mg PO BIDWM [facility] Stop: 10/06/17 08:59 Last Admin: 08/10/17 08:16 Dose: 1,000 mg Miscellaneous (Lurasidone Hcl [Latuda]) 60 mg PO DAILY [facility] Stop: 10/06/17 08:59 Multivitamins/Vitamin C (Theragran) 1 tab PO DAILY [facility] Stop: 10/06/17 08:59 Last Admin: 08/10/17 08:54 Dose: 1 tab Pantoprazole Sodium (Protonix) 40 mg PO QDAC [facility] Stop: 10/06/17 08:59 Last Admin: 08/10/17 06:30 Dose: 40 mg Paroxetine HCl (Paxil) 40 mg PO DAILY [facility] PRN Reason: Protocol Stop: 10/06/17 08:59 Last Admin: 08/10/17 08:54 Dose: 40 mg Pioglitazone HCl (Actos) 30 mg PO DAILY [facility] Stop: 10/06/17 08:59 Last Admin: 08/10/17 08:54 Dose: 30 mg Risperidone (Risperdal) 2.5 mg PO BID [facility] PRN Reason: Protocol Stop: 10/06/17 08:59 Last Admin: 08/10/17 17:00 Dose: 2.5 mg Sitagliptin Phosphate (Januvia) 100 mg PO DAILY [facility] Stop: 10/06/17 08:59 Last Admin: 08/10/17 08:54 Dose: 100 mg Zolpidem Tartrate (Ambien) 5 mg PO HS PRN PRN Reason: Insomnia Stop: 10/05/17 19:49 Last Admin: 08/06/17 21:11 Dose: 5 mg General: demented HEENT: NC/AT, PERRLA, anicteric sclerae, throat clear Neck: Supple, No JVD, No thyromegaly, +2 carotid pulse wo bruit, No LAD Lungs: CTAB Cardiovascular: RRR, Normal S1, Normal S2, without murmur Abdomen: non-tender, non-distended Neurological: no change Internal Medicine Assmt/Plan - Assessment Assessment: 1.DM. 2.HTN 3.HYPERLIPIDEMEA. 4.DEMENTIA. - Plan Plan: CONTINUE ON CURRENT MEDICATION AND DIET.
[2017-08-11] MEDS: Albuterol Nebulizer 2.5mg/3mL HHN SCH ×4 (00:50→18:55)
[2017-08-11] MEDS ORDERED: LURASIDONE HCL 80 MG PO SCH (06:44)
[2017-08-11] MEDS: INSULIN ASPART SLIDING SCALE 100 UNITS/ML UNIT SUBQ SCH ×4 (06:48→20:18)
[2017-08-11] MEDS: Pantoprazole 40 mg EC Tab PO SCH (06:49)
[2017-08-11] MEDS: Multivitamin Tab PO SCH (08:43)
--- NOTE | 2017-08-11 08:43 | Progress Notes ---
DATE: SUBJECTIVE: Chart reviewed and the patient interviewed. Also discussed the patient's condition with the staff and reviewed records and labs. The patient is still severely irritable and she is still confused and forgetful. The patient also is suspicious and she is still paranoid. She also tends to isolate herself and wants to be left alone. Otherwise, the patient is compliant with taking her medications with no side effects of medications. The patient continued to take both Latuda as well as Clozaril. No side effects of medications. Also, the patient continued to take Paxil 40 mg everyday as well as Risperdal 2.5 mg everyday. The patient is currently on 3 antipsychotic medications. ASSESSMENT: The patient is still agitated, but she is also on multiple antipsychotic medications. TREATMENT PLAN: We will discontinue Risperdal. We will increase Latuda and will continue to follow up. We will give Latuda in a dose of 80 mg everyday since stopping Risperdal. JOB# [id number]
[2017-08-11] MEDS: Budesonide 0.5 Mg/2 mL Ud HHN SCH ×2 (09:25→18:55)
--- NOTE | 2017-08-11 11:53 | Internal Medicine Prog Note ---
Internal Medicine Subjective - Subjective Service Date: 08/11/17 Patient seen and examined:: with staff Patient is:: awake, verbal, in bed, confused Per staff patient has:: no adverse event Internal Medicine Objective - Results Result Diagrams: 08/10/17 09:18 08/10/17 09:18 Recent Labs: Laboratory Last Values WBC 9.8 Th/cmm (4.8-10.8) D 08/10/17 09:18 RBC 4.37 Mil/cmm (3.80-5.10) 08/10/17 09:18 Hgb 12.9 gm/dL (12-16) 08/10/17 09:18 Hct 38.9 % (41.0-60) L 08/10/17 09:18 MCV 89.2 fl (81-100) 08/10/17 09:18 MCH 29.6 pg (27.0-31.0) 08/10/17 09: MCHC Differential 33.2 pg (28.0-36.0) 08/10/17:18 RDW 15.3 % (11.5-20.0) 08/10/17 09:18 Plt Count 265 Th/cmm (150-400) 08/10/17 09:18 MPV 8.4 fl 08/10/17 09:18 Neutrophils % 69.3 % (40.0-80.0) 08/10/17 09:18 Lymphocytes % 25.0 % (20.0-50.0) 08/10/17 09:18 Monocytes % 4.0 % (2.0-10.0) 08/10/17 09:18 Eosinophils % 0.9 % (0.0-5.0) 08/10/17 09:18 Basophils % 0.8 % (0.0-2.0) 08/10/17 09:18 Sodium 134 mEq/L (136-145) L 08/10/17 09:18 Potassium 3.9 mEq/L (3.5-5.1) 08/10/17 09:18 Chloride 98 mEq/L (98-107) 08/10/17 09:18 Carbon Dioxide 29.0 mEq/L (21.0-31.0) 08/10/17 09:18 Anion Gap 10.9 (7.0-16.0) 08/10/17 09:18 BUN 8 mg/dL (7-25) 08/10/17 09:18 Creatinine 0.7 mg/dL (0.6-1.2) 08/10/17 09:18 Est GFR ( Amer) > 60.0 ml/min (>90) 08/10/17 09:18 Est GFR (Non-Af Amer) > 60.0 ml/min 08/10/17 09:18 BUN/Creatinine Ratio 11.4 08/10/17 09:18 Glucose 140 mg/dL (70-105) H 08/10/17 09:18 POC Glucose 99 MG/DL (70 - 105) 08/07/17 20:36 Hemoglobin A1c % 5.3 % (4.0-6.0) 08/06/17 16:20 Whole Bld Lactic Acid 1.02 mmol/L (0.60-1.99) 08/06/17 16:20 Calcium 9.9 mg/dL (8.6-10.3) 08/10/17 09:18 Total Bilirubin 0.5 mg/dL (0.3-1.0) 08/06/17 16:20 AST 11 U/L (13-39) L 08/06/17 16:20 ALT 7 U/L (7-52) 08/06/17 16:20 Alkaline Phosphatase 82 U/L (34-104) 08/06/17 16:20 Total Protein 7.1 gm/dL (6.0-8.3) 08/06/17 16:20 Albumin 4.6 gm/dL (3.7-5.3) 08/06/17 16:20 Globulin 2.5 gm/dL 08/06/17 16:20 Albumin/Globulin Ratio 1.8 (1.0-1.8) 08/06/17 16:20 Triglycerides 104 mg/dL (<150) 08/06/17 16:20 Cholesterol 124 mg/dL (<200) 08/06/17 16:20 LDL Cholesterol Direct 53 mg/dL (75-193) L 08/06/17 16:20 HDL Cholesterol 52 mg/dL (23-92) 08/06/17 16:20 TSH 1.14 uIU/ml (0.34-5.60) 08/06/17 16:20 Urine Source CLEAN C 08/09/17 15:45 Urine Color YELLOW 08/09/17 15:45 Urine Clarity CLEAR (CLEAR) 08/09/17 15:45 Urine pH 6.0 (4.6 - 8.0) 08/09/17 15:45 Ur Specific [place] 1.025 (1.005-1.030) 08/09/17 15:45 Urine Protein TRACE mg/dL (NEGATIVE) 08/09/17 15:45 Urine Glucose (UA) NEGATIVE mg/dL (NEGATIVE) 08/09/17 15:45 Urine Ketones NEGATIVE mg/dL (NEGATIVE) 08/09/17 15:45 Urine Blood NEGATIVE (NEGATIVE) 08/09/17 15:45 Urine Nitrate NEGATIVE (NEGATIVE) 08/09/17 15:45 Urine Bilirubin NEGATIVE (NEGATIVE) 08/09/17 15:45 Urine Urobilinogen 0.2 E.U./dL (0.2 - 1.0) 08/09/17 15:45 Ur Leukocyte Esterase NEGATIVE (NEGATIVE) 08/09/17 15:45 Urine RBC NONE SEEN /hpf (0-5) 08/09/17 15:45 Urine WBC 2-5 /hpf (0-5) 08/09/17 15:45 Ur Epithelial Cells OCCASIONAL /lpf (FEW) 08/09/17 15:45 Urine Bacteria FEW /hpf (NONE SEEN) 08/09/17 15:45 RPR NONREACTIVE (NONREACTIVE) 08/06/17 16:20 - Physical Exam Vitals and I&O: Vital Signs Temp 98.0 F 08/11/17 05:53 Pulse 95 08/11/17 09:32 Resp 18 08/11/17 09:32 BP 108/57 08/11/17 08:54 Pulse Ox 97 08/11/17 09:32 Intake & Output 08/10/17 08/11/17 08/11/17 18:59 06:59 18:59 Intake Total 800 440 Balance 800 440 Intake: Oral 800 440 Other: # Voids 3 2 # Bowel Movements 1 0 Active Medications: Current Medications Acetaminophen (Tylenol) 650 mg PO Q4HR PRN PRN Reason: Mild Pain / Temp above 100 Stop: 10/05/17 19:49 Last Admin: 08/07/17 18:47 Dose: 650 mg Al Hydrox/Mg Hydrox/Simethicone (Maalox) 30 ml PO Q4HR PRN PRN Reason: GI DISTRESS Stop: 10/05/17 19:49 Albuterol Sulfate (Albuterol 2.5mg/3ml Neb Ud) 2.5 mg HHN Q4H PRN PRN Reason: Shortness of Breath Stop: 10/06/17 07:54 Albuterol Sulfate (Albuterol 2.5mg/3ml Neb Ud) 2.5 mg HHN Q6HRT [facility] Stop: 10/06/17 12:59 Last Admin: 08/11/17 09:31 Dose: 2.5 mg Amlodipine Besylate (Norvasc) 10 mg PO DAILY [facility] Stop: 10/06/17 08:59 Last Admin: 08/11/17 08:54 Dose: Not Given Atorvastatin Calcium (Lipitor) 20 mg PO HS [facility] Stop: 10/05/17 20:59 Last Admin: 08/10/17 22:00 Dose: 20 mg Benztropine Mesylate (Cogentin) 0.5 mg PO BID [facility] Stop: 10/06/17 08:59 Last Admin: 08/11/17 08:55 Dose: 0.5 mg Budesonide (Pulmicort) 0.5 mg HHN BIDRT [facility] Stop: 10/06/17 08:59 Last Admin: 08/11/17 09:25 Dose: 0.5 mg Clozapine (Clozaril) 150 mg PO BID [facility] Stop: 10/06/17 14:59 Last Admin: 08/11/17 08:38 Dose: 150 mg Insulin Aspart (Novolog Insulin Sliding Scale) 0 units SUBQ ACHS VERONIQUE PRN Reason: Protocol Stop: 10/05/17 20:59 Last Admin: 08/11/17 11:27 Dose: Not Given Lorazepam (Ativan) 0.5 mg PO Q4HR PRN; Protocol PRN Reason: Anxiety Stop: 09/05/17 19:49 Magnesium Hydroxide (Milk Of Magnesia) 30 ml PO HS PRN PRN Reason: Constipation Metformin HCl (Glucophage) 1,000 mg PO BIDWM VERONIQUE Stop: 10/06/17 08:59 Last Admin: 08/11/17 08:48 Dose: 1,000 mg Miscellaneous (Lurasidone Hcl [Latuda]) 80 mg PO DAILY REPLACED BY [facility] Stop: 10/10/17 06:43 Multivitamins/Vitamin C (Theragran) 1 tab PO DAILY VERONIQUE Stop: 10/06/17 08:59 Last Admin: 08/11/17 08:43 Dose: 1 tab Pantoprazole Sodium (Protonix) 40 mg PO QDAC VERONIQUE Stop: 10/06/17 08:59 Last Admin: 08/11/17 06:49 Dose: 40 mg Paroxetine HCl (Paxil) 40 mg PO DAILY VERONIQUE PRN Reason: Protocol Stop: 10/06/17 08:59 Last Admin: 08/11/17 08:39 Dose: 40 mg Pioglitazone HCl (Actos) 30 mg PO DAILY VERONIQUE Stop: 10/06/17 08:59 Last Admin: 08/11/17 08:46 Dose: 30 mg Sitagliptin Phosphate (Januvia) 100 mg PO DAILY REPLACED BY [facility] Stop: 10/06/17 08:59 Last Admin: 08/11/17 08:44 Dose: 100 mg Zolpidem Tartrate (Ambien) 5 mg PO HS PRN PRN Reason: Insomnia Stop: 10/05/17 19:49 Last Admin: 08/11/17 01:23 Dose: 5 mg General: demented HEENT: NC/AT, PERRLA, anicteric sclerae, throat clear Neck: Supple, No JVD, No thyromegaly, +2 carotid pulse wo bruit, No LAD Lungs: CTAB Cardiovascular: RRR, Normal S1, Normal S2, without murmur Abdomen: non-tender, non-distended Neurological: no change Internal Medicine Assmt/Plan - Assessment Assessment: 1.DM. 2.HTN 3.HYPERLIPIDEMEA. 4.DEMENTIA. - Plan Plan: CONTINUE ON CURRENT MEDICATION AND DIET.
[2017-08-11] MEDS: Atorvastatin Calcium 10 MG TAB PO SCH (20:18)
[2017-08-12] MEDS: Albuterol Nebulizer 2.5mg/3mL HHN SCH ×4 (00:40→20:56)
[2017-08-12] MEDS: Pantoprazole 40 mg EC Tab PO SCH (06:32)
[2017-08-12] MEDS: INSULIN ASPART SLIDING SCALE 100 UNITS/ML UNIT SUBQ SCH ×4 (06:33→21:26)
[2017-08-12] MEDS: Budesonide 0.5 Mg/2 mL Ud HHN SCH ×2 (07:06→20:56)
[2017-08-12] MEDS: Multivitamin Tab PO SCH (08:57)
--- NOTE | 2017-08-12 19:27 | Progress Notes ---
DATE: SUBJECTIVE: Chart reviewed and the patient interviewed. Also discussed the patient's condition with the staff and reviewed records and labs. The patient is less agitated, and she seems to be in a depressed mood. Also, she has unpredictable behavior. The patient also wants to be left alone and isolating herself most of the time. Otherwise, the patient denies any intention to harm herself or others. She also is trying to stick her medications. ASSESSMENT: The patient is still anxious and is still depressed. TREATMENT PLAN: We will continue to monitor her behavior and her condition closely. Also, continue adjusting psychotropic medications and continue to follow up closely. [facility]# [id number]
--- NOTE | 2017-08-12 19:56 | Internal Medicine Prog Note ---
Internal Medicine Subjective - Subjective Service Date: 08/12/17 Patient seen and examined:: with staff Patient is:: awake, verbal, in bed, confused Per staff patient has:: no adverse event Internal Medicine Objective - Results Result Diagrams: 08/10/17 09:18 08/10/17 09:18 Recent Labs: Laboratory Last Values WBC 9.8 Th/cmm (4.8-10.8) D 08/10/17 09:18 RBC 4.37 Mil/cmm (3.80-5.10) 08/10/17 09:18 Hgb 12.9 gm/dL (12-16) 08/10/17 09:18 Hct 38.9 % (41.0-60) L 08/10/17 09:18 MCV 89.2 fl (81-100) 08/10/17 09:18 MCH 29.6 pg (27.0-31.0) 08/10/17 09: MCHC Differential 33.2 pg (28.0-36.0) 08/10/17:18 RDW 15.3 % (11.5-20.0) 08/10/17 09:18 Plt Count 265 Th/cmm (150-400) 08/10/17 09:18 MPV 8.4 fl 08/10/17 09:18 Neutrophils % 69.3 % (40.0-80.0) 08/10/17 09:18 Lymphocytes % 25.0 % (20.0-50.0) 08/10/17 09:18 Monocytes % 4.0 % (2.0-10.0) 08/10/17 09:18 Eosinophils % 0.9 % (0.0-5.0) 08/10/17 09:18 Basophils % 0.8 % (0.0-2.0) 08/10/17 09:18 Sodium 134 mEq/L (136-145) L 08/10/17 09:18 Potassium 3.9 mEq/L (3.5-5.1) 08/10/17 09:18 Chloride 98 mEq/L (98-107) 08/10/17 09:18 Carbon Dioxide 29.0 mEq/L (21.0-31.0) 08/10/17 09:18 Anion Gap 10.9 (7.0-16.0) 08/10/17 09:18 BUN 8 mg/dL (7-25) 08/10/17 09:18 Creatinine 0.7 mg/dL (0.6-1.2) 08/10/17 09:18 Est GFR ( Amer) > 60.0 ml/min (>90) 08/10/17 09:18 Est GFR (Non-Af Amer) > 60.0 ml/min 08/10/17 09:18 BUN/Creatinine Ratio 11.4 08/10/17 09:18 Glucose 140 mg/dL (70-105) H 08/10/17 09:18 POC Glucose 99 MG/DL (70 - 105) 08/07/17 20:36 Hemoglobin A1c % 5.3 % (4.0-6.0) 08/06/17 16:20 Whole Bld Lactic Acid 1.02 mmol/L (0.60-1.99) 08/06/17 16:20 Calcium 9.9 mg/dL (8.6-10.3) 08/10/17 09:18 Total Bilirubin 0.5 mg/dL (0.3-1.0) 08/06/17 16:20 AST 11 U/L (13-39) L 08/06/17 16:20 ALT 7 U/L (7-52) 08/06/17 16:20 Alkaline Phosphatase 82 U/L (34-104) 08/06/17 16:20 Total Protein 7.1 gm/dL (6.0-8.3) 08/06/17 16:20 Albumin 4.6 gm/dL (3.7-5.3) 08/06/17 16:20 Globulin 2.5 gm/dL 08/06/17 16:20 Albumin/Globulin Ratio 1.8 (1.0-1.8) 08/06/17 16:20 Triglycerides 104 mg/dL (<150) 08/06/17 16:20 Cholesterol 124 mg/dL (<200) 08/06/17 16:20 LDL Cholesterol Direct 53 mg/dL (75-193) L 08/06/17 16:20 HDL Cholesterol 52 mg/dL (23-92) 08/06/17 16:20 TSH 1.14 uIU/ml (0.34-5.60) 08/06/17 16:20 Urine Source CLEAN C 08/09/17 15:45 Urine Color YELLOW 08/09/17 15:45 Urine Clarity CLEAR (CLEAR) 08/09/17 15:45 Urine pH 6.0 (4.6 - 8.0) 08/09/17 15:45 Ur Specific [place] 1.025 (1.005-1.030) 08/09/17 15:45 Urine Protein TRACE mg/dL (NEGATIVE) 08/09/17 15:45 Urine Glucose (UA) NEGATIVE mg/dL (NEGATIVE) 08/09/17 15:45 Urine Ketones NEGATIVE mg/dL (NEGATIVE) 08/09/17 15:45 Urine Blood NEGATIVE (NEGATIVE) 08/09/17 15:45 Urine Nitrate NEGATIVE (NEGATIVE) 08/09/17 15:45 Urine Bilirubin NEGATIVE (NEGATIVE) 08/09/17 15:45 Urine Urobilinogen 0.2 E.U./dL (0.2 - 1.0) 08/09/17 15:45 Ur Leukocyte Esterase NEGATIVE (NEGATIVE) 08/09/17 15:45 Urine RBC NONE SEEN /hpf (0-5) 08/09/17 15:45 Urine WBC 2-5 /hpf (0-5) 08/09/17 15:45 Ur Epithelial Cells OCCASIONAL /lpf (FEW) 08/09/17 15:45 Urine Bacteria FEW /hpf (NONE SEEN) 08/09/17 15:45 RPR NONREACTIVE (NONREACTIVE) 08/06/17 16:20 - Physical Exam Vitals and I&O: Vital Signs Temp 97.7 F 08/12/17 19:54 Pulse 94 08/12/17 19:54 Resp 20 08/12/17 19:54 BP 104/66 08/12/17 19:54 Pulse Ox 96 08/12/17 19:54 Intake & Output 08/12/17 08/12/17 08/13/17 06:59 18:59 06:59 Intake Total 360 1200 Balance 360 1200 Intake: Oral 360 1200 Other: # Voids 2 3 # Bowel Movements 1 Active Medications: Current Medications Acetaminophen (Tylenol) 650 mg PO Q4HR PRN PRN Reason: Mild Pain / Temp above 100 Stop: 10/05/17 19:49 Last Admin: 08/12/17 16:44 Dose: 650 mg Al Hydrox/Mg Hydrox/Simethicone (Maalox) 30 ml PO Q4HR PRN PRN Reason: GI DISTRESS Stop: 10/05/17 19:49 Albuterol Sulfate (Albuterol 2.5mg/3ml Neb Ud) 2.5 mg HHN Q4H PRN PRN Reason: Shortness of Breath Stop: 10/06/17 07:54 Albuterol Sulfate (Albuterol 2.5mg/3ml Neb Ud) 2.5 mg HHN Q6HRT [facility] Stop: 10/06/17 12:59 Last Admin: 08/12/17 12:25 Dose: 2.5 mg Amlodipine Besylate (Norvasc) 10 mg PO DAILY [facility] Stop: 10/06/17 08:59 Last Admin: 08/12/17 09:00 Dose: 10 mg Atorvastatin Calcium (Lipitor) 20 mg PO HS [facility] Stop: 10/05/17 20:59 Last Admin: 08/11/17 20:18 Dose: 20 mg Benztropine Mesylate (Cogentin) 0.5 mg PO BID [facility] Stop: 10/06/17 08:59 Last Admin: 08/12/17 16:46 Dose: 0.5 mg Budesonide (Pulmicort) 0.5 mg HHN BIDRT [facility] Stop: 10/06/17 08:59 Last Admin: 08/12/17 07:06 Dose: 0.5 mg Clozapine (Clozaril) 150 mg PO BID [facility] Stop: 10/06/17 14:59 Last Admin: 08/12/17 16:45 Dose: 150 mg Insulin Aspart (Novolog Insulin Sliding Scale) 0 units SUBQ ACHS [facility] PRN Reason: Protocol Stop: 10/05/17 20:59 Last Admin: 08/12/17 16:46 Dose: Not Given Lorazepam (Ativan) 0.5 mg PO Q4HR PRN; Protocol PRN Reason: Anxiety Stop: 09/05/17 19:49 Magnesium Hydroxide (Milk Of Magnesia) 30 ml PO HS PRN PRN Reason: Constipation Metformin HCl (Glucophage) 1,000 mg PO BIDWM [facility] Stop: 10/06/17 08:59 Last Admin: 08/12/17 18:04 Dose: 1,000 mg Miscellaneous (Lurasidone Hcl [Latuda]) 80 mg PO DAILY [facility] Stop: 10/10/17 06:43 Multivitamins/Vitamin C (Theragran) 1 tab PO DAILY [facility] Stop: 10/06/17 08:59 Last Admin: 08/12/17 08:57 Dose: 1 tab Pantoprazole Sodium (Protonix) 40 mg PO QDAC [facility] Stop: 10/06/17 08:59 Last Admin: 08/12/17 06:32 Dose: 40 mg Paroxetine HCl (Paxil) 40 mg PO DAILY [facility] PRN Reason: Protocol Stop: 10/06/17 08:59 Last Admin: 08/12/17 08:58 Dose: 40 mg Pioglitazone HCl (Actos) 30 mg PO DAILY [facility] Stop: 10/06/17 08:59 Last Admin: 08/12/17 08:57 Dose: 30 mg Sitagliptin Phosphate (Januvia) 100 mg PO DAILY [facility] Stop: 10/06/17 08:59 Last Admin: 08/12/17 08:57 Dose: 100 mg Zolpidem Tartrate (Ambien) 5 mg PO HS PRN PRN Reason: Insomnia Stop: 10/05/17 19:49 Last Admin: 08/11/17 20:26 Dose: 5 mg General: demented HEENT: NC/AT, PERRLA, anicteric sclerae, throat clear Neck: Supple, No JVD, No thyromegaly, +2 carotid pulse wo bruit, No LAD Lungs: CTAB Cardiovascular: RRR, Normal S1, Normal S2, without murmur Abdomen: non-tender, non-distended Neurological: no change Internal Medicine Assmt/Plan - Assessment Assessment: 1.DM. 2.HTN 3.HYPERLIPIDEMEA. 4.DEMENTIA. - Plan Plan: CONTINUE ON CURRENT MEDICATION AND DIET. Nutritional Asmnt/Malnutr-PDOC - Dietary Evaluation Malnutrition Findings (Please click <Entered> for more info): Nutritional Asmnt/Malnutrition Start: 08/11/17 15: 44 Text: Status: Complete Freq: Document 08/11/17 15:44 LCDAISHAG (Rec: 08/11/17 15:49 LCKATHRYN [id number]) Nutritional Asmnt/Malnutrition Patient General Information Nutritional Screening Moderate Risk Diagnosis psychosis Pertinent Medical Hx/Surgical Hx HTN, DM, hyperlipidemia, COPD, psychosis, dementia Subjective Information Pt seen in hallway at time of visit. Pt said she does not like the meat here. Per records, PO intake 100%. Current Diet Order/ Nutrition Support [address], [facility] soft chopped Pertinent Medications novolog, glucophage, theragran , protonix Pertinent Labs 08/10 Na 134, K 3.9, Cl 98, BUN 8, Cr 0.8, glucose 140 3/ A1c 5.3 Nutritional Hx/Data Height 1.68 m Height (Calculated Centimeters) 167.6 Current Weight (lbs) 65.771 kg Weight (Calculated Kilograms) 65.8 Weight (Calculated Grams) 58206.9 [place] Body Weight 148 Body Mass Index (BMI) 23.3 Weight Status Approriate GI Symptoms GI Symptoms None Last BM 3/ Difficult in: None Skin Integrity/Comment: intact Current %PO Good (75-100%) Estimated Nutritional Goals BEE in Kcals: Using Current wt Calories/Kcals/Kg 25-30 Kcals Calculated 3962-2598 Protein: Using Current wt Protein g/k Protein Calculated 66 Fluid: ml 1650-1980ml (1ml/kcal) Nutritional Problem No current Nutrition Prob Problem N/A Intervention/Recommendation Comments 1. Continue with [facility] soft chopped diet as ordered. 2. Monitor PO intake, wt, labs and skin integrity 3. F/U as low risk in 7 days, 08/18 Expected Outcomes/Goals Expected Outcomes/Goals 1. PO intake to meet at least 75% of nutritional needs. 2. Wt stability, skin to remain intact, labs to approach WNL.
[2017-08-12] MEDS: Atorvastatin Calcium 10 MG TAB PO SCH (21:26)
[2017-08-13] MEDS: Albuterol Nebulizer 2.5mg/3mL HHN SCH ×4 (01:28→20:59)
[2017-08-13] MEDS: Pantoprazole 40 mg EC Tab PO SCH (06:48)
[2017-08-13] MEDS: INSULIN ASPART SLIDING SCALE 100 UNITS/ML UNIT SUBQ SCH ×4 (07:01→21:10)
[2017-08-13] MEDS: Budesonide 0.5 Mg/2 mL Ud HHN SCH ×2 (07:59→20:59)
[2017-08-13] MEDS: Multivitamin Tab PO SCH (09:01)
--- NOTE | 2017-08-13 19:55 | Internal Medicine Prog Note ---
Internal Medicine Subjective - Subjective Service Date: 08/13/17 Patient seen and examined:: with staff Patient is:: awake, verbal, in bed, confused Per staff patient has:: no adverse event Internal Medicine Objective - Results Result Diagrams: 08/10/17 09:18 08/10/17 09:18 Recent Labs: Laboratory Last Values WBC 9.8 Th/cmm (4.8-10.8) D 08/10/17 09:18 RBC 4.37 Mil/cmm (3.80-5.10) 08/10/17 09:18 Hgb 12.9 gm/dL (12-16) 08/10/17 09:18 Hct 38.9 % (41.0-60) L 08/10/17 09:18 MCV 89.2 fl (81-100) 08/10/17 09:18 MCH 29.6 pg (27.0-31.0) 08/10/17 09: MCHC Differential 33.2 pg (28.0-36.0) 08/10/17:18 RDW 15.3 % (11.5-20.0) 08/10/17 09:18 Plt Count 265 Th/cmm (150-400) 08/10/17 09:18 MPV 8.4 fl 08/10/17 09:18 Neutrophils % 69.3 % (40.0-80.0) 08/10/17 09:18 Lymphocytes % 25.0 % (20.0-50.0) 08/10/17 09:18 Monocytes % 4.0 % (2.0-10.0) 08/10/17 09:18 Eosinophils % 0.9 % (0.0-5.0) 08/10/17 09:18 Basophils % 0.8 % (0.0-2.0) 08/10/17 09:18 Sodium 134 mEq/L (136-145) L 08/10/17 09:18 Potassium 3.9 mEq/L (3.5-5.1) 08/10/17 09:18 Chloride 98 mEq/L (98-107) 08/10/17 09:18 Carbon Dioxide 29.0 mEq/L (21.0-31.0) 08/10/17 09:18 Anion Gap 10.9 (7.0-16.0) 08/10/17 09:18 BUN 8 mg/dL (7-25) 08/10/17 09:18 Creatinine 0.7 mg/dL (0.6-1.2) 08/10/17 09:18 Est GFR ( Amer) > 60.0 ml/min (>90) 08/10/17 09:18 Est GFR (Non-Af Amer) > 60.0 ml/min 08/10/17 09:18 BUN/Creatinine Ratio 11.4 08/10/17 09:18 Glucose 140 mg/dL (70-105) H 08/10/17 09:18 POC Glucose 99 MG/DL (70 - 105) 08/07/17 20:36 Hemoglobin A1c % 5.3 % (4.0-6.0) 08/06/17 16:20 Whole Bld Lactic Acid 1.02 mmol/L (0.60-1.99) 08/06/17 16:20 Calcium 9.9 mg/dL (8.6-10.3) 08/10/17 09:18 Total Bilirubin 0.5 mg/dL (0.3-1.0) 08/06/17 16:20 AST 11 U/L (13-39) L 08/06/17 16:20 ALT 7 U/L (7-52) 08/06/17 16:20 Alkaline Phosphatase 82 U/L (34-104) 08/06/17 16:20 Total Protein 7.1 gm/dL (6.0-8.3) 08/06/17 16:20 Albumin 4.6 gm/dL (3.7-5.3) 08/06/17 16:20 Globulin 2.5 gm/dL 08/06/17 16:20 Albumin/Globulin Ratio 1.8 (1.0-1.8) 08/06/17 16:20 Triglycerides 104 mg/dL (<150) 08/06/17 16:20 Cholesterol 124 mg/dL (<200) 08/06/17 16:20 LDL Cholesterol Direct 53 mg/dL (75-193) L 08/06/17 16:20 HDL Cholesterol 52 mg/dL (23-92) 08/06/17 16:20 TSH 1.14 uIU/ml (0.34-5.60) 08/06/17 16:20 Urine Source CLEAN C 08/09/17 15:45 Urine Color YELLOW 08/09/17 15:45 Urine Clarity CLEAR (CLEAR) 08/09/17 15:45 Urine pH 6.0 (4.6 - 8.0) 08/09/17 15:45 Ur Specific [place] 1.025 (1.005-1.030) 08/09/17 15:45 Urine Protein TRACE mg/dL (NEGATIVE) 08/09/17 15:45 Urine Glucose (UA) NEGATIVE mg/dL (NEGATIVE) 08/09/17 15:45 Urine Ketones NEGATIVE mg/dL (NEGATIVE) 08/09/17 15:45 Urine Blood NEGATIVE (NEGATIVE) 08/09/17 15:45 Urine Nitrate NEGATIVE (NEGATIVE) 08/09/17 15:45 Urine Bilirubin NEGATIVE (NEGATIVE) 08/09/17 15:45 Urine Urobilinogen 0.2 E.U./dL (0.2 - 1.0) 08/09/17 15:45 Ur Leukocyte Esterase NEGATIVE (NEGATIVE) 08/09/17 15:45 Urine RBC NONE SEEN /hpf (0-5) 08/09/17 15:45 Urine WBC 2-5 /hpf (0-5) 08/09/17 15:45 Ur Epithelial Cells OCCASIONAL /lpf (FEW) 08/09/17 15:45 Urine Bacteria FEW /hpf (NONE SEEN) 08/09/17 15:45 RPR NONREACTIVE (NONREACTIVE) 08/06/17 16:20 - Physical Exam Vitals and I&O: Vital Signs Temp 96 F 08/13/17 15:32 Pulse 96 08/13/17 15:32 Resp 20 08/13/17 15:32 BP 108/65 08/13/17 15:32 Pulse Ox 96 08/13/17 15:32 Intake & Output 08/13/17 08/13/17 08/14/17 06:59 18:59 06:59 Intake Total 120 Balance 120 Intake: Oral 120 Other: # Voids 3 Stool Characteristics Soft Active Medications: Current Medications Acetaminophen (Tylenol) 650 mg PO Q4HR PRN PRN Reason: Mild Pain / Temp above 100 Stop: 10/05/17 19:49 Last Admin: 08/13/17 16:56 Dose: 650 mg Al Hydrox/Mg Hydrox/Simethicone (Maalox) 30 ml PO Q4HR PRN PRN Reason: GI DISTRESS Stop: 10/05/17 19:49 Albuterol Sulfate (Albuterol 2.5mg/3ml Neb Ud) 2.5 mg HHN Q4H PRN PRN Reason: Shortness of Breath Stop: 10/06/17 07:54 Albuterol Sulfate (Albuterol 2.5mg/3ml Neb Ud) 2.5 mg HHN Q6HRT [facility] Stop: 10/06/17 12:59 Last Admin: 08/13/17 12:44 Dose: 2.5 mg Amlodipine Besylate (Norvasc) 10 mg PO DAILY [facility] Stop: 10/06/17 08:59 Last Admin: 08/13/17 09:01 Dose: 10 mg Atorvastatin Calcium (Lipitor) 20 mg PO HS [facility] Stop: 10/05/17 20:59 Last Admin: 08/12/17 21:26 Dose: 20 mg Benztropine Mesylate (Cogentin) 0.5 mg PO BID [facility] Stop: 10/06/17 08:59 Last Admin: 08/13/17 16:56 Dose: 0.5 mg Budesonide (Pulmicort) 0.5 mg HHN BIDRT [facility] Stop: 10/06/17 08:59 Last Admin: 08/13/17 07:59 Dose: 0.5 mg Clozapine (Clozaril) 150 mg PO BID [facility] Stop: 10/06/17 14:59 Last Admin: 08/13/17 16:56 Dose: 150 mg Insulin Aspart (Novolog Insulin Sliding Scale) 0 units SUBQ ACHS [facility] PRN Reason: Protocol Stop: 10/05/17 20:59 Last Admin: 08/13/17 16:10 Dose: Not Given Lorazepam (Ativan) 0.5 mg PO Q4HR PRN; Protocol PRN Reason: Anxiety Stop: 09/05/17 19:49 Magnesium Hydroxide (Milk Of Magnesia) 30 ml PO HS PRN PRN Reason: Constipation Metformin HCl (Glucophage) 1,000 mg PO BIDWM [facility] Stop: 10/06/17 08:59 Last Admin: 08/13/17 17:18 Dose: 1,000 mg Miscellaneous (Lurasidone Hcl [Latuda]) 80 mg PO DAILY [facility] Stop: 10/10/17 06:43 Multivitamins/Vitamin C (Theragran) 1 tab PO DAILY [facility] Stop: 10/06/17 08:59 Last Admin: 08/13/17 09:01 Dose: 1 tab Pantoprazole Sodium (Protonix) 40 mg PO QDAC [facility] Stop: 10/06/17 08:59 Last Admin: 08/13/17 06:48 Dose: 40 mg Paroxetine HCl (Paxil) 40 mg PO DAILY [facility] PRN Reason: Protocol Stop: 10/06/17 08:59 Last Admin: 08/13/17 09:03 Dose: 40 mg Pioglitazone HCl (Actos) 30 mg PO DAILY [facility] Stop: 10/06/17 08:59 Last Admin: 08/13/17 09:02 Dose: 30 mg Sitagliptin Phosphate (Januvia) 100 mg PO DAILY [facility] Stop: 10/06/17 08:59 Last Admin: 08/13/17 09:07 Dose: 100 mg Zolpidem Tartrate (Ambien) 5 mg PO HS PRN PRN Reason: Insomnia Stop: 10/05/17 19:49 Last Admin: 08/12/17 21:25 Dose: 5 mg General: demented HEENT: NC/AT, PERRLA, anicteric sclerae, throat clear Neck: Supple, No JVD, No thyromegaly, +2 carotid pulse wo bruit, No LAD Lungs: CTAB Cardiovascular: RRR, Normal S1, Normal S2, without murmur Abdomen: non-tender, non-distended Neurological: no change Internal Medicine Assmt/Plan - Assessment Assessment: 1.DM. 2.HTN 3.HYPERLIPIDEMEA. 4.DEMENTIA. - Plan Plan: CONTINUE ON CURRENT MEDICATION AND DIET. Nutritional Asmnt/Malnutr-PDOC - Dietary Evaluation Malnutrition Findings (Please click <Entered> for more info): Nutritional Asmnt/Malnutrition Start: 08/11/17 15: 44 Text: Status: Complete Freq: Document 08/11/17 15:44 LCDAISHAG (Rec: 08/11/17 15:49 LCKATHRYN [id number] [id number]) Nutritional Asmnt/Malnutrition Patient General Information Nutritional Screening Moderate Risk Diagnosis psychosis Pertinent Medical Hx/Surgical Hx HTN, DM, hyperlipidemia, COPD, psychosis, dementia Subjective Information Pt seen in hallway at time of visit. Pt said she does not like the meat here. Per records, PO intake 100%. Current Diet Order/ Nutrition Support [address], [facility] soft chopped Pertinent Medications novolog, glucophage, theragran , protonix Pertinent Labs 08/10 Na 134, K 3.9, Cl 98, BUN 8, Cr 0.8, glucose 140 3/ A1c 5.3 Nutritional Hx/Data Height 1.68 m Height (Calculated Centimeters) 167.6 Current Weight (lbs) 65.771 kg Weight (Calculated Kilograms) 65.8 Weight (Calculated Grams) 56173.9 [place] Body Weight 148 Body Mass Index (BMI) 23.3 Weight Status Approriate GI Symptoms GI Symptoms None Last BM 3/5 Difficult in: None Skin Integrity/Comment: intact Current %PO Good (75-100%) Estimated Nutritional Goals BEE in Kcals: Using Current wt Calories/Kcals/Kg 25-30 Kcals Calculated 4813-9324 Protein: Using Current wt Protein g/k Protein Calculated 66 Fluid: ml 1650-1980ml (1ml/kcal) Nutritional Problem No current Nutrition Prob Problem N/A Intervention/Recommendation Comments 1. Continue with [facility] soft chopped diet as ordered. 2. Monitor PO intake, wt, labs and skin integrity 3. F/U as low risk in 7 days, 08/18 Expected Outcomes/Goals Expected Outcomes/Goals 1. PO intake to meet at least 75% of nutritional needs. 2. Wt stability, skin to remain intact, labs to approach WNL.
[2017-08-13] MEDS: Atorvastatin Calcium 10 MG TAB PO SCH (20:56)
[2017-08-14] MEDS: Albuterol Nebulizer 2.5mg/3mL HHN SCH ×3 (01:29→19:51)
[2017-08-14] MEDS: Pantoprazole 40 mg EC Tab PO SCH (06:31)
[2017-08-14] MEDS: INSULIN ASPART SLIDING SCALE 100 UNITS/ML UNIT SUBQ SCH ×4 (06:37→23:55)
[2017-08-14] MEDS: Multivitamin Tab PO SCH (08:57)
--- NOTE | 2017-08-14 19:39 | Internal Medicine Prog Note ---
Internal Medicine Subjective - Subjective Service Date: 08/14/17 Patient seen and examined:: with staff Patient is:: awake, verbal, in bed, confused Per staff patient has:: no adverse event Internal Medicine Objective - Results Result Diagrams: 08/10/17 09:18 08/10/17 09:18 Recent Labs: Laboratory Last Values WBC 9.8 Th/cmm (4.8-10.8) D 08/10/17 09:18 RBC 4.37 Mil/cmm (3.80-5.10) 08/10/17 09:18 Hgb 12.9 gm/dL (12-16) 08/10/17 09:18 Hct 38.9 % (41.0-60) L 08/10/17 09:18 MCV 89.2 fl (81-100) 08/10/17 09:18 MCH 29.6 pg (27.0-31.0) 08/10/17 09: MCHC Differential 33.2 pg (28.0-36.0) 08/10/17:18 RDW 15.3 % (11.5-20.0) 08/10/17 09:18 Plt Count 265 Th/cmm (150-400) 08/10/17 09:18 MPV 8.4 fl 08/10/17 09:18 Neutrophils % 69.3 % (40.0-80.0) 08/10/17 09:18 Lymphocytes % 25.0 % (20.0-50.0) 08/10/17 09:18 Monocytes % 4.0 % (2.0-10.0) 08/10/17 09:18 Eosinophils % 0.9 % (0.0-5.0) 08/10/17 09:18 Basophils % 0.8 % (0.0-2.0) 08/10/17 09:18 Sodium 134 mEq/L (136-145) L 08/10/17 09:18 Potassium 3.9 mEq/L (3.5-5.1) 08/10/17 09:18 Chloride 98 mEq/L (98-107) 08/10/17 09:18 Carbon Dioxide 29.0 mEq/L (21.0-31.0) 08/10/17 09:18 Anion Gap 10.9 (7.0-16.0) 08/10/17 09:18 BUN 8 mg/dL (7-25) 08/10/17 09:18 Creatinine 0.7 mg/dL (0.6-1.2) 08/10/17 09:18 Est GFR ( Amer) > 60.0 ml/min (>90) 08/10/17 09:18 Est GFR (Non-Af Amer) > 60.0 ml/min 08/10/17 09:18 BUN/Creatinine Ratio 11.4 08/10/17 09:18 Glucose 140 mg/dL (70-105) H 08/10/17 09:18 POC Glucose 99 MG/DL (70 - 105) 08/07/17 20:36 Hemoglobin A1c % 5.3 % (4.0-6.0) 08/06/17 16:20 Whole Bld Lactic Acid 1.02 mmol/L (0.60-1.99) 08/06/17 16:20 Calcium 9.9 mg/dL (8.6-10.3) 08/10/17 09:18 Total Bilirubin 0.5 mg/dL (0.3-1.0) 08/06/17 16:20 AST 11 U/L (13-39) L 08/06/17 16:20 ALT 7 U/L (7-52) 08/06/17 16:20 Alkaline Phosphatase 82 U/L (34-104) 08/06/17 16:20 Total Protein 7.1 gm/dL (6.0-8.3) 08/06/17 16:20 Albumin 4.6 gm/dL (3.7-5.3) 08/06/17 16:20 Globulin 2.5 gm/dL 08/06/17 16:20 Albumin/Globulin Ratio 1.8 (1.0-1.8) 08/06/17 16:20 Triglycerides 104 mg/dL (<150) 08/06/17 16:20 Cholesterol 124 mg/dL (<200) 08/06/17 16:20 LDL Cholesterol Direct 53 mg/dL (75-193) L 08/06/17 16:20 HDL Cholesterol 52 mg/dL (23-92) 08/06/17 16:20 TSH 1.14 uIU/ml (0.34-5.60) 08/06/17 16:20 Urine Source CLEAN C 08/09/17 15:45 Urine Color YELLOW 08/09/17 15:45 Urine Clarity CLEAR (CLEAR) 08/09/17 15:45 Urine pH 6.0 (4.6 - 8.0) 08/09/17 15:45 Ur Specific [place] 1.025 (1.005-1.030) 08/09/17 15:45 Urine Protein TRACE mg/dL (NEGATIVE) 08/09/17 15:45 Urine Glucose (UA) NEGATIVE mg/dL (NEGATIVE) 08/09/17 15:45 Urine Ketones NEGATIVE mg/dL (NEGATIVE) 08/09/17 15:45 Urine Blood NEGATIVE (NEGATIVE) 08/09/17 15:45 Urine Nitrate NEGATIVE (NEGATIVE) 08/09/17 15:45 Urine Bilirubin NEGATIVE (NEGATIVE) 08/09/17 15:45 Urine Urobilinogen 0.2 E.U./dL (0.2 - 1.0) 08/09/17 15:45 Ur Leukocyte Esterase NEGATIVE (NEGATIVE) 08/09/17 15:45 Urine RBC NONE SEEN /hpf (0-5) 08/09/17 15:45 Urine WBC 2-5 /hpf (0-5) 08/09/17 15:45 Ur Epithelial Cells OCCASIONAL /lpf (FEW) 08/09/17 15:45 Urine Bacteria FEW /hpf (NONE SEEN) 08/09/17 15:45 RPR NONREACTIVE (NONREACTIVE) 08/06/17 16:20 - Physical Exam Vitals and I&O: Vital Signs Temp 98.1 F 08/14/17 16:10 Pulse 94 08/14/17 16:10 Resp 18 08/14/17 16:10 BP 109/59 08/14/17 16:10 Pulse Ox 99 08/14/17 16:10 Active Medications: Current Medications Acetaminophen (Tylenol) 650 mg PO Q4HR PRN PRN Reason: Mild Pain / Temp above 100 Stop: 10/05/17 19:49 Last Admin: 08/13/17 16:56 Dose: 650 mg Al Hydrox/Mg Hydrox/Simethicone (Maalox) 30 ml PO Q4HR PRN PRN Reason: GI DISTRESS Stop: 10/05/17 19:49 Albuterol Sulfate (Albuterol 2.5mg/3ml Neb Ud) 2.5 mg HHN Q4H PRN PRN Reason: Shortness of Breath Stop: 10/06/17 07:54 Albuterol Sulfate (Albuterol 2.5mg/3ml Neb Ud) 2.5 mg HHN Q6HRT [facility] Stop: 10/06/17 12:59 Last Admin: 08/14/17 13:15 Dose: 2.5 mg Amlodipine Besylate (Norvasc) 10 mg PO DAILY [facility] Stop: 10/06/17 08:59 Last Admin: 08/14/17 08:54 Dose: 10 mg Atorvastatin Calcium (Lipitor) 20 mg PO HS [facility] Stop: 10/05/17 20:59 Last Admin: 08/13/17 20:56 Dose: 20 mg Benztropine Mesylate (Cogentin) 0.5 mg PO BID [facility] Stop: 10/06/17 08:59 Last Admin: 08/14/17 17:48 Dose: 0.5 mg Budesonide (Pulmicort) 0.5 mg HHN BIDRT [facility] Stop: 10/06/17 08:59 Last Admin: 08/13/17 20:59 Dose: 0.5 mg Clozapine (Clozaril) 150 mg PO BID [facility] Stop: 10/06/17 14:59 Last Admin: 08/14/17 17:48 Dose: 150 mg Insulin Aspart (Novolog Insulin Sliding Scale) 0 units SUBQ ACHS [facility] PRN Reason: Protocol Stop: 10/05/17 20:59 Last Admin: 08/14/17 17:12 Dose: Not Given Lorazepam (Ativan) 0.5 mg PO Q4HR PRN; Protocol PRN Reason: Anxiety Stop: 09/05/17 19:49 Magnesium Hydroxide (Milk Of Magnesia) 30 ml PO HS PRN PRN Reason: Constipation Metformin HCl (Glucophage) 1,000 mg PO BIDWM [facility] Stop: 10/06/17 08:59 Last Admin: 08/14/17 17:49 Dose: 1,000 mg Miscellaneous (Lurasidone Hcl [Latuda]) 80 mg PO DAILY [facility] Stop: 10/10/17 06:43 Multivitamins/Vitamin C (Theragran) 1 tab PO DAILY [facility] Stop: 10/06/17 08:59 Last Admin: 08/14/17 08:57 Dose: 1 tab Pantoprazole Sodium (Protonix) 40 mg PO QDAC [facility] Stop: 10/06/17 08:59 Last Admin: 08/14/17 06:31 Dose: 40 mg Paroxetine HCl (Paxil) 40 mg PO DAILY [facility] PRN Reason: Protocol Stop: 10/06/17 08:59 Last Admin: 08/14/17 08:57 Dose: 40 mg Pioglitazone HCl (Actos) 30 mg PO DAILY [facility] Stop: 10/06/17 08:59 Last Admin: 08/14/17 08:57 Dose: 30 mg Sitagliptin Phosphate (Januvia) 100 mg PO DAILY [facility] Stop: 10/06/17 08:59 Last Admin: 08/14/17 08:58 Dose: 100 mg Zolpidem Tartrate (Ambien) 5 mg PO HS PRN PRN Reason: Insomnia Stop: 10/05/17 19:49 Last Admin: 08/13/17 20:56 Dose: 5 mg General: demented HEENT: NC/AT, PERRLA, anicteric sclerae, throat clear Neck: Supple, No JVD, No thyromegaly, +2 carotid pulse wo bruit, No LAD Lungs: CTAB Cardiovascular: RRR, Normal S1, Normal S2, without murmur Abdomen: non-tender, non-distended Neurological: no change Internal Medicine Assmt/Plan - Assessment Assessment: 1.DM. 2.HTN 3.HYPERLIPIDEMEA. 4.DEMENTIA. - Plan Plan: CONTINUE ON CURRENT MEDICATION AND DIET. Nutritional Asmnt/Malnutr-PDOC - Dietary Evaluation Malnutrition Findings (Please click <Entered> for more info): Nutritional Asmnt/Malnutrition Start: 08/11/17 15: 44 Text: Status: Complete Freq: Document 08/11/17 15:44 [facility] (Rec: 08/11/17 15:49 [id number]) Nutritional Asmnt/Malnutrition Patient General Information Nutritional Screening Moderate Risk Diagnosis psychosis Pertinent Medical Hx/Surgical Hx HTN, DM, hyperlipidemia, COPD, psychosis, dementia Subjective Information Pt seen in hallway at time of visit. Pt said she does not like the meat here. Per records, PO intake 100%. Current Diet Order/ Nutrition Support [id number], [facility] soft chopped Pertinent Medications novolog, glucophage, theragran , protonix Pertinent Labs 3/ Na 134, K 3.9, Cl 98, BUN 8, Cr 0.8, glucose 140 3/ A1c 5.3 Nutritional Hx/Data Height 1.68 m Height (Calculated Centimeters) 167.6 Current Weight (lbs) 65.771 kg Weight (Calculated Kilograms) 65.8 Weight (Calculated Grams) 38749.9 [place] Body Weight 148 Body Mass Index (BMI) 23.3 Weight Status Approriate GI Symptoms GI Symptoms None Last BM 3/5 Difficult in: None Skin Integrity/Comment: intact Current %PO Good (75-100%) Estimated Nutritional Goals BEE in Kcals: Using Current wt Calories/Kcals/Kg 25-30 Kcals Calculated 8047-5102 Protein: Using Current wt Protein g/k Protein Calculated 66 Fluid: ml 1650-1980ml (1ml/kcal) Nutritional Problem No current Nutrition Prob Problem N/A Intervention/Recommendation Comments [facility]. [facility] soft chopped diet as ordered. 2. Monitor PO intake, wt, labs and skin integrity 3. F/U as low risk in 7 days, 08/18 Expected Outcomes/Goals Expected Outcomes/Goals 1. PO intake to meet at least 75% of nutritional needs. 2. Wt stability, skin to remain intact, labs to approach WNL.
[2017-08-14] MEDS: Budesonide 0.5 Mg/2 mL Ud HHN SCH (20:03)
[2017-08-14] MEDS: Atorvastatin Calcium 10 MG TAB PO SCH (20:28)
[2017-08-15] MEDS: Albuterol Nebulizer 2.5mg/3mL HHN SCH ×4 (01:50→20:11)
[2017-08-15] MEDS: Pantoprazole 40 mg EC Tab PO SCH (06:41)
[2017-08-15] MEDS: INSULIN ASPART SLIDING SCALE 100 UNITS/ML UNIT SUBQ SCH ×4 (06:47→21:21)
[2017-08-15] MEDS: Budesonide 0.5 Mg/2 mL Ud HHN SCH ×2 (07:13→20:11)
[2017-08-15] MEDS: Multivitamin Tab PO SCH (08:37)
--- NOTE | 2017-08-15 19:08 | Internal Medicine Prog Note ---
Internal Medicine Subjective - Subjective Service Date: 08/15/17 Patient seen and examined:: with staff Patient is:: awake, verbal, in bed, confused Per staff patient has:: no adverse event Internal Medicine Objective - Results Result Diagrams: 08/10/17 09:18 08/10/17 09:18 Recent Labs: Laboratory Last Values WBC 9.8 Th/cmm (4.8-10.8) D 08/10/17 09:18 RBC 4.37 Mil/cmm (3.80-5.10) 08/10/17 09:18 Hgb 12.9 gm/dL (12-16) 08/10/17 09:18 Hct 38.9 % (41.0-60) L 08/10/17 09:18 MCV 89.2 fl (81-100) 08/10/17 09:18 MCH 29.6 pg (27.0-31.0) 08/10/17 09: MCHC Differential 33.2 pg (28.0-36.0) 08/10/17:18 RDW 15.3 % (11.5-20.0) 08/10/17 09:18 Plt Count 265 Th/cmm (150-400) 08/10/17 09:18 MPV 8.4 fl 08/10/17 09:18 Neutrophils % 69.3 % (40.0-80.0) 08/10/17 09:18 Lymphocytes % 25.0 % (20.0-50.0) 08/10/17 09:18 Monocytes % 4.0 % (2.0-10.0) 08/10/17 09:18 Eosinophils % 0.9 % (0.0-5.0) 08/10/17 09:18 Basophils % 0.8 % (0.0-2.0) 08/10/17 09:18 Sodium 134 mEq/L (136-145) L 08/10/17 09:18 Potassium 3.9 mEq/L (3.5-5.1) 08/10/17 09:18 Chloride 98 mEq/L (98-107) 08/10/17 09:18 Carbon Dioxide 29.0 mEq/L (21.0-31.0) 08/10/17 09:18 Anion Gap 10.9 (7.0-16.0) 08/10/17 09:18 BUN 8 mg/dL (7-25) 08/10/17 09:18 Creatinine 0.7 mg/dL (0.6-1.2) 08/10/17 09:18 Est GFR ( Amer) > 60.0 ml/min (>90) 08/10/17 09:18 Est GFR (Non-Af Amer) > 60.0 ml/min 08/10/17 09:18 BUN/Creatinine Ratio 11.4 08/10/17 09:18 Glucose 140 mg/dL (70-105) H 08/10/17 09:18 POC Glucose 99 MG/DL (70 - 105) 08/07/17 20:36 Hemoglobin A1c % 5.3 % (4.0-6.0) 08/06/17 16:20 Whole Bld Lactic Acid 1.02 mmol/L (0.60-1.99) 08/06/17 16:20 Calcium 9.9 mg/dL (8.6-10.3) 08/10/17 09:18 Total Bilirubin 0.5 mg/dL (0.3-1.0) 08/06/17 16:20 AST 11 U/L (13-39) L 08/06/17 16:20 ALT 7 U/L (7-52) 08/06/17 16:20 Alkaline Phosphatase 82 U/L (34-104) 08/06/17 16:20 Total Protein 7.1 gm/dL (6.0-8.3) 08/06/17 16:20 Albumin 4.6 gm/dL (3.7-5.3) 08/06/17 16:20 Globulin 2.5 gm/dL 08/06/17 16:20 Albumin/Globulin Ratio 1.8 (1.0-1.8) 08/06/17 16:20 Triglycerides 104 mg/dL (<150) 08/06/17 16:20 Cholesterol 124 mg/dL (<200) 08/06/17 16:20 LDL Cholesterol Direct 53 mg/dL (75-193) L 08/06/17 16:20 HDL Cholesterol 52 mg/dL (23-92) 08/06/17 16:20 TSH 1.14 uIU/ml (0.34-5.60) 08/06/17 16:20 Urine Source CLEAN C 08/09/17 15:45 Urine Color YELLOW 08/09/17 15:45 Urine Clarity CLEAR (CLEAR) 08/09/17 15:45 Urine pH 6.0 (4.6 - 8.0) 08/09/17 15:45 Ur Specific [place] 1.025 (1.005-1.030) 08/09/17 15:45 Urine Protein TRACE mg/dL (NEGATIVE) 08/09/17 15:45 Urine Glucose (UA) NEGATIVE mg/dL (NEGATIVE) 08/09/17 15:45 Urine Ketones NEGATIVE mg/dL (NEGATIVE) 08/09/17 15:45 Urine Blood NEGATIVE (NEGATIVE) 08/09/17 15:45 Urine Nitrate NEGATIVE (NEGATIVE) 08/09/17 15:45 Urine Bilirubin NEGATIVE (NEGATIVE) 08/09/17 15:45 Urine Urobilinogen 0.2 E.U./dL (0.2 - 1.0) 08/09/17 15:45 Ur Leukocyte Esterase NEGATIVE (NEGATIVE) 08/09/17 15:45 Urine RBC NONE SEEN /hpf (0-5) 08/09/17 15:45 Urine WBC 2-5 /hpf (0-5) 08/09/17 15:45 Ur Epithelial Cells OCCASIONAL /lpf (FEW) 08/09/17 15:45 Urine Bacteria FEW /hpf (NONE SEEN) 08/09/17 15:45 RPR NONREACTIVE (NONREACTIVE) 08/06/17 16:20 - Physical Exam Vitals and I&O: Vital Signs Temp 98.3 F 08/15/17 16:35 Pulse 94 08/15/17 16:35 Resp 18 08/15/17 16:35 BP 108/67 08/15/17 16:35 Pulse Ox 98 08/15/17 16:35 Intake & Output 08/15/17 08/15/17 08/16/17 06:59 18:59 07:59 Intake Total 640 1200 Balance 640 1200 Intake: Oral 640 1200 Other: # Voids 3 3 # Bowel Movements 1 Active Medications: Current Medications Acetaminophen (Tylenol) 650 mg PO Q4HR PRN PRN Reason: Mild Pain / Temp above 100 Stop: 10/05/17 19:49 Last Admin: 08/13/17 16:56 Dose: 650 mg Al Hydrox/Mg Hydrox/Simethicone (Maalox) 30 ml PO Q4HR PRN PRN Reason: GI DISTRESS Stop: 10/05/17 19:49 Albuterol Sulfate (Albuterol 2.5mg/3ml Neb Ud) 2.5 mg HHN Q4H PRN PRN Reason: Shortness of Breath Stop: 10/06/17 07:54 Albuterol Sulfate (Albuterol 2.5mg/3ml Neb Ud) 2.5 mg HHN Q6HRT [facility] Stop: 10/06/17 12:59 Last Admin: 08/15/17 14:24 Dose: 2.5 mg Amlodipine Besylate (Norvasc) 10 mg PO DAILY [facility] Stop: 10/06/17 08:59 Last Admin: 08/15/17 08:37 Dose: 10 mg Atorvastatin Calcium (Lipitor) 20 mg PO HS [facility] Stop: 10/05/17 20:59 Last Admin: 08/14/17 20:28 Dose: 20 mg Benztropine Mesylate (Cogentin) 0.5 mg PO BID [facility] Stop: 10/06/17 08:59 Last Admin: 08/15/17 17:45 Dose: 0.5 mg Budesonide (Pulmicort) 0.5 mg HHN BIDRT [facility] Stop: 10/06/17 08:59 Last Admin: 08/15/17 07:13 Dose: 0.5 mg Clozapine (Clozaril) 150 mg PO BID [facility] Stop: 10/06/17 14:59 Last Admin: 08/15/17 17:45 Dose: 150 mg Insulin Aspart (Novolog Insulin Sliding Scale) 0 units SUBQ ACHS [facility] PRN Reason: Protocol Stop: 10/05/17 20:59 Last Admin: 08/15/17 17:04 Dose: Not Given Lorazepam (Ativan) 0.5 mg PO Q4HR PRN; Protocol PRN Reason: Anxiety Stop: 09/05/17 19:49 Magnesium Hydroxide (Milk Of Magnesia) 30 ml PO HS PRN PRN Reason: Constipation Metformin HCl (Glucophage) 1,000 mg PO BIDWM [facility] Stop: 10/06/17 08:59 Last Admin: 08/15/17 17:45 Dose: 1,000 mg Miscellaneous (Lurasidone Hcl [Latuda]) 80 mg PO DAILY [facility] Stop: 10/10/17 06:43 Multivitamins/Vitamin C (Theragran) 1 tab PO DAILY [facility] Stop: 10/06/17 08:59 Last Admin: 08/15/17 08:37 Dose: 1 tab Pantoprazole Sodium (Protonix) 40 mg PO QDAC [facility] Stop: 10/06/17 08:59 Last Admin: 08/15/17 06:41 Dose: 40 mg Paroxetine HCl (Paxil) 40 mg PO DAILY [facility] PRN Reason: Protocol Stop: 10/06/17 08:59 Last Admin: 08/15/17 08:35 Dose: 40 mg Pioglitazone HCl (Actos) 30 mg PO DAILY [facility] Stop: 10/06/17 08:59 Last Admin: 08/15/17 08:37 Dose: 30 mg Sitagliptin Phosphate (Januvia) 100 mg PO DAILY [facility] Stop: 10/06/17 08:59 Last Admin: 08/15/17 08:35 Dose: 100 mg Zolpidem Tartrate (Ambien) 5 mg PO HS PRN PRN Reason: Insomnia Stop: 10/05/17 19:49 Last Admin: 08/13/17 20:56 Dose: 5 mg General: demented HEENT: NC/AT, PERRLA, anicteric sclerae, throat clear Neck: Supple, No JVD, No thyromegaly, +2 carotid pulse wo bruit, No LAD Lungs: CTAB Cardiovascular: RRR, Normal S1, Normal S2, without murmur Abdomen: non-tender, non-distended Neurological: no change Internal Medicine Assmt/Plan - Assessment Assessment: 1.DM. 2.HTN 3.HYPERLIPIDEMEA. 4.DEMENTIA. - Plan Plan: CONTINUE ON CURRENT MEDICATION AND DIET. Nutritional Asmnt/Malnutr-PDOC - Dietary Evaluation Malnutrition Findings (Please click <Entered> for more info): Nutritional Asmnt/Malnutrition Start: 08/11/17 15: 44 Text: Status: Complete Freq: Document 08/11/17 15:44 [facility] (Rec: 08/11/17 15:49 [email or web address] [id number]) Nutritional Asmnt/Malnutrition Patient General Information Nutritional Screening Moderate Risk Diagnosis psychosis Pertinent Medical Hx/Surgical Hx HTN, DM, hyperlipidemia, COPD, psychosis, dementia Subjective Information Pt seen in hallway at time of visit. Pt said she does not like the meat here. Per records, PO intake 100%. Current Diet Order/ Nutrition Support [address], [facility] soft chopped Pertinent Medications novolog, glucophage, theragran , protonix Pertinent Labs 08/10 Na 134, K 3.9, Cl 98, BUN 8, Cr 0.8, glucose 140 3/ A1c 5.3 Nutritional Hx/Data Height 1.68 m Height (Calculated Centimeters) 167.6 Current Weight (lbs) 65.771 kg Weight (Calculated Kilograms) 65.8 Weight (Calculated Grams) 61757.9 [place] Body Weight 148 Body Mass Index (BMI) 23.3 Weight Status Approriate GI Symptoms GI Symptoms None Last BM 3/ Difficult in: None Skin Integrity/Comment: intact Current %PO Good (75-100%) Estimated Nutritional Goals BEE in Kcals: Using Current wt Calories/Kcals/Kg 25-30 Kcals Calculated 6998-8063 Protein: Using Current wt Protein g/k Protein Calculated 66 Fluid: ml 1650-1980ml (1ml/kcal) Nutritional Problem No current Nutrition Prob Problem N/A Intervention/Recommendation Comments 1. Continue with [facility] soft chopped diet as ordered. 2. Monitor PO intake, wt, labs and skin integrity 3. F/U as low risk in 7 days, 08/18 Expected Outcomes/Goals Expected Outcomes/Goals 1. PO intake to meet at least 75% of nutritional needs. 2. Wt stability, skin to remain intact, labs to approach WNL.
[2017-08-15] MEDS: Atorvastatin Calcium 10 MG TAB PO SCH (21:21)
--- NOTE | 2017-08-15 22:23 | Progress Notes ---
DATE: 08/13/2017 SUBJECTIVE: Chart reviewed and the patient interviewed. Also discussed the patient's condition with the staff and reviewed records and labs. The patient is still having unpredictable behavior and she is still easily agitated and in irritable mood. The patient also is still interacting more, but she still tends to isolate herself and she also still gets combative when staff tries to help her with her ADLs. She also is still paranoid and suspicious. Otherwise, the patient is compliant with taking her medications with no side effects. ASSESSMENT: The patient is still psychotic and can be dangerous to others. TREATMENT PLAN: We will continue monitoring her behavior and her condition closely. Also, continue Clozaril in a dose of 150 mg every day and Paxil 40 mg everyday and we will continue to follow up closely. JOB# [id number]
--- NOTE | 2017-08-15 22:33 | Progress Notes ---
DATE: 08/14/2017 SUBJECTIVE: Chart reviewed and the patient interviewed. Also discussed the patient's condition with the staff and reviewed records and labs. The patient is still suspicious and guarded. She also is still unpredictable. She has rare episodes of being combative, but at the same time, she wants to be left alone. Also, the patient continued to be on oxygen. ASSESSMENT: The patient is still psychotic and combative. TREATMENT PLAN: Continue to monitor her behavior and her condition closely. Also, we will continue current medications and follow up closely. JOB# [id number]
[2017-08-16] MEDS: Albuterol Nebulizer 2.5mg/3mL HHN SCH ×4 (00:16→20:19)
--- NOTE | 2017-08-16 05:59 | Progress Notes ---
DATE: Chart reviewed and the patient interviewed. Also discussed the patient's condition with the staff and reviewed records and labs. The patient is still confused and still have unpredictable behavior. The patient also is still restless and still agitated. The patient also continued to have agitation and psychosis. The patient also is still taking Clozaril with no side effects. ASSESSMENT: The patient is still confused and psychotic. TREATMENT PLAN: Continue Clozaril in a dose of 150 mg twice a day and Paxil in a dose of 40 mg everyday. Also, continue to follow up closely with her behavior. JOB# [id number]
[2017-08-16] MEDS: Pantoprazole 40 mg EC Tab PO SCH (06:39)
[2017-08-16] MEDS: INSULIN ASPART SLIDING SCALE 100 UNITS/ML UNIT SUBQ SCH ×4 (06:40→21:54)
[2017-08-16] MEDS: Budesonide 0.5 Mg/2 mL Ud HHN SCH ×2 (07:00→20:19)
[2017-08-16] MEDS: Multivitamin Tab PO SCH (08:55)
[2017-08-16] MEDS: Atorvastatin Calcium 10 MG TAB PO SCH (21:53)
--- NOTE | 2017-08-16 23:45 | Internal Medicine Prog Note ---
Internal Medicine Subjective - Subjective Service Date: 08/16/17 Patient seen and examined:: without staff Patient is:: awake, verbal, in bed, confused Per staff patient has:: no adverse event Internal Medicine Objective - Results Result Diagrams: 08/10/17 09:18 08/10/17 09:18 Recent Labs: Laboratory Last Values WBC 9.8 Th/cmm (4.8-10.8) D 08/10/17 09:18 RBC 4.37 Mil/cmm (3.80-5.10) 08/10/17 09:18 Hgb 12.9 gm/dL (12-16) 08/10/17 09:18 Hct 38.9 % (41.0-60) L 08/10/17 09:18 MCV 89.2 fl (81-100) 08/10/17 09:18 MCH 29.6 pg (27.0-31.0) 08/10/17 09: MCHC Differential 33.2 pg (28.0-36.0) 08/10/17:18 RDW 15.3 % (11.5-20.0) 08/10/17 09:18 Plt Count 265 Th/cmm (150-400) 08/10/17 09:18 MPV 8.4 fl 08/10/17 09:18 Neutrophils % 69.3 % (40.0-80.0) 08/10/17 09:18 Lymphocytes % 25.0 % (20.0-50.0) 08/10/17 09:18 Monocytes % 4.0 % (2.0-10.0) 08/10/17 09:18 Eosinophils % 0.9 % (0.0-5.0) 08/10/17 09:18 Basophils % 0.8 % (0.0-2.0) 08/10/17 09:18 Sodium 134 mEq/L (136-145) L 08/10/17 09:18 Potassium 3.9 mEq/L (3.5-5.1) 08/10/17 09:18 Chloride 98 mEq/L (98-107) 08/10/17 09:18 Carbon Dioxide 29.0 mEq/L (21.0-31.0) 08/10/17 09:18 Anion Gap 10.9 (7.0-16.0) 08/10/17 09:18 BUN 8 mg/dL (7-25) 08/10/17 09:18 Creatinine 0.7 mg/dL (0.6-1.2) 08/10/17 09:18 Est GFR ( Amer) > 60.0 ml/min (>90) 08/10/17 09:18 Est GFR (Non-Af Amer) > 60.0 ml/min 08/10/17 09:18 BUN/Creatinine Ratio 11.4 08/10/17 09:18 Glucose 140 mg/dL (70-105) H 08/10/17 09:18 POC Glucose 99 MG/DL (70 - 105) 08/07/17 20:36 Hemoglobin A1c % 5.3 % (4.0-6.0) 08/06/17 16:20 Whole Bld Lactic Acid 1.02 mmol/L (0.60-1.99) 08/06/17 16:20 Calcium 9.9 mg/dL (8.6-10.3) 08/10/17 09:18 Total Bilirubin 0.5 mg/dL (0.3-1.0) 08/06/17 16:20 AST 11 U/L (13-39) L 08/06/17 16:20 ALT 7 U/L (7-52) 08/06/17 16:20 Alkaline Phosphatase 82 U/L (34-104) 08/06/17 16:20 Total Protein 7.1 gm/dL (6.0-8.3) 08/06/17 16:20 Albumin 4.6 gm/dL (3.7-5.3) 08/06/17 16:20 Globulin 2.5 gm/dL 08/06/17 16:20 Albumin/Globulin Ratio 1.8 (1.0-1.8) 08/06/17 16:20 Triglycerides 104 mg/dL (<150) 08/06/17 16:20 Cholesterol 124 mg/dL (<200) 08/06/17 16:20 LDL Cholesterol Direct 53 mg/dL (75-193) L 08/06/17 16:20 HDL Cholesterol 52 mg/dL (23-92) 08/06/17 16:20 TSH 1.14 uIU/ml (0.34-5.60) 08/06/17 16:20 Urine Source CLEAN C 08/09/17 15:45 Urine Color YELLOW 08/09/17 15:45 Urine Clarity CLEAR (CLEAR) 08/09/17 15:45 Urine pH 6.0 (4.6 - 8.0) 08/09/17 15:45 Ur Specific [place] 1.025 (1.005-1.030) 08/09/17 15:45 Urine Protein TRACE mg/dL (NEGATIVE) 08/09/17 15:45 Urine Glucose (UA) NEGATIVE mg/dL (NEGATIVE) 08/09/17 15:45 Urine Ketones NEGATIVE mg/dL (NEGATIVE) 08/09/17 15:45 Urine Blood NEGATIVE (NEGATIVE) 08/09/17 15:45 Urine Nitrate NEGATIVE (NEGATIVE) 08/09/17 15:45 Urine Bilirubin NEGATIVE (NEGATIVE) 08/09/17 15:45 Urine Urobilinogen 0.2 E.U./dL (0.2 - 1.0) 08/09/17 15:45 Ur Leukocyte Esterase NEGATIVE (NEGATIVE) 08/09/17 15:45 Urine RBC NONE SEEN /hpf (0-5) 08/09/17 15:45 Urine WBC 2-5 /hpf (0-5) 08/09/17 15:45 Ur Epithelial Cells OCCASIONAL /lpf (FEW) 08/09/17 15:45 Urine Bacteria FEW /hpf (NONE SEEN) 08/09/17 15:45 RPR NONREACTIVE (NONREACTIVE) 08/06/17 16:20 - Physical Exam Vitals and I&O: Vital Signs Temp 98.5 F 08/16/17 20:21 Pulse 92 08/16/17 20:24 Resp 20 08/16/17 20:24 BP 98/50 08/16/17 20:21 Pulse Ox 100 08/16/17 20:24 Intake & Output 08/16/17 08/16/17 08/17/17 06:59 18:59 06:59 Intake Total 1200 Balance 1200 Intake: Oral 1200 Other: # Voids 3 # Bowel Movements Active Medications: Current Medications Acetaminophen (Tylenol) 650 mg PO Q4HR PRN PRN Reason: Mild Pain / Temp above 100 Stop: 10/05/17 19:49 Last Admin: 08/13/17 16:56 Dose: 650 mg Al Hydrox/Mg Hydrox/Simethicone (Maalox) 30 ml PO Q4HR PRN PRN Reason: GI DISTRESS Stop: 10/05/17 19:49 Albuterol Sulfate (Albuterol 2.5mg/3ml Neb Ud) 2.5 mg HHN Q4H PRN PRN Reason: Shortness of Breath Stop: 10/06/17 07:54 Albuterol Sulfate (Albuterol 2.5mg/3ml Neb Ud) 2.5 mg HHN Q6HRT VERONIQUE Stop: 10/06/17 12:59 Last Admin: 08/16/17 20:19 Dose: 2.5 mg Amlodipine Besylate (Norvasc) 10 mg PO DAILY VERONIQUE Stop: 10/06/17 08:59 Last Admin: 08/16/17 08:57 Dose: 10 mg Atorvastatin Calcium (Lipitor) 20 mg PO HS VERONIQUE Stop: 10/05/17 20:59 Last Admin: 08/16/17 21:53 Dose: 20 mg Benztropine Mesylate (Cogentin) 0.5 mg PO BID VERONIQUE Stop: 10/06/17 08:59 Last Admin: 08/16/17 18:24 Dose: 0.5 mg Budesonide (Pulmicort) 0.5 mg HHN BIDRT VERONIQUE Stop: 10/06/17 08:59 Last Admin: 08/16/17 20:19 Dose: 0.5 mg Clozapine (Clozaril) 150 mg PO BID VERONIQUE Stop: 10/06/17 14:59 Last Admin: 08/16/17 18:24 Dose: 150 mg Insulin Aspart (Novolog Insulin Sliding Scale) 0 units SUBQ ACHS VERONIQUE PRN Reason: Protocol Stop: 10/05/17 20:59 Last Admin: 08/16/17 21:54 Dose: Not Given Lorazepam (Ativan) 0.5 mg PO Q4HR PRN; Protocol PRN Reason: Anxiety Stop: 09/05/17 19:49 Magnesium Hydroxide (Milk Of Magnesia) 30 ml PO HS PRN PRN Reason: Constipation Metformin HCl (Glucophage) 1,000 mg PO BIDWM VERONIQUE Stop: 10/06/17 08:59 Last Admin: 08/16/17 18:24 Dose: 1,000 mg Miscellaneous (Lurasidone Hcl [Latuda]) 80 mg PO DAILY VERONIQUE Stop: 10/10/17 06:43 Multivitamins/Vitamin C (Theragran) 1 tab PO DAILY VERONIQUE Stop: 10/06/17 08:59 Last Admin: 08/16/17 08:55 Dose: 1 tab Pantoprazole Sodium (Protonix) 40 mg PO QDAC [facility] Stop: 10/06/17 08:59 Last Admin: 08/16/17 06:39 Dose: 40 mg Paroxetine HCl (Paxil) 40 mg PO DAILY VERONIQUE PRN Reason: Protocol Stop: 10/06/17 08:59 Last Admin: 08/16/17 08:54 Dose: 40 mg Pioglitazone HCl (Actos) 30 mg PO DAILY [facility]ONIQUE Stop: 10/06/17 08:59 Last Admin: 08/16/17 08:54 Dose: 30 mg Sitagliptin Phosphate (Januvia) 100 mg PO DAILY [facility] Stop: 10/06/17 08:59 Last Admin: 08/16/17 08:55 Dose: 100 mg Zolpidem Tartrate (Ambien) 5 mg PO HS PRN PRN Reason: Insomnia Stop: 10/05/17 19:49 Last Admin: 08/16/17 21:54 Dose: 5 mg General: demented HEENT: NC/AT, PERRLA, anicteric sclerae, throat clear Neck: Supple, No JVD, No thyromegaly, +2 carotid pulse wo bruit, No LAD Lungs: CTAB Cardiovascular: RRR, Normal S1, Normal S2, without murmur Abdomen: non-tender, non-distended Neurological: no change Internal Medicine Assmt/Plan - Assessment Assessment: 1.DM. 2.HTN 3.HYPERLIPIDEMEA. 4.DEMENTIA. - Plan Plan: CONTINUE ON CURRENT MEDICATION AND DIET. Nutritional Asmnt/Malnutr-PDOC - Dietary Evaluation Malnutrition Findings (Please click <Entered> for more info): Nutritional Asmnt/Malnutrition Start: 08/11/17 15: 44 Text: Status: Complete Freq: Document 08/11/17 15:44 ALEXANDER (Rec: 08/11/17 15:49 ALEXANDER [facility]) Nutritional Asmnt/Malnutrition Patient General Information Nutritional Screening Moderate Risk Diagnosis psychosis Pertinent Medical Hx/Surgical Hx HTN, DM, hyperlipidemia, COPD, psychosis, dementia Subjective Information Pt seen in hallway at time of visit. Pt said she does not like the meat here. Per records, PO intake 100%. Current Diet Order/ Nutrition Support [id number], [facility] soft chopped Pertinent Medications novolog, glucophage, theragran , protonix Pertinent Labs 08/10 Na 134, K 3.9, Cl 98, BUN 8, Cr 0.8, glucose 140 08/06 A1c 5.3 Nutritional Hx/Data Height 1.68 m Height (Calculated Centimeters) 167.6 Current Weight (lbs) 65.771 kg Weight (Calculated Kilograms) 65.8 Weight (Calculated Grams) 87062.9 [place] Body Weight 148 Body Mass Index (BMI) 23.3 Weight Status Approriate GI Symptoms GI Symptoms None Last BM 3/5 Difficult in: None Skin Integrity/Comment: intact Current %PO Good (75-100%) Estimated Nutritional Goals BEE in Kcals: Using Current wt Calories/Kcals/Kg 25-30 Kcals Calculated 6959-2765 Protein: Using Current wt Protein g/k Protein Calculated 66 Fluid: ml 1650-1980ml (1ml/kcal) Nutritional Problem No current Nutrition Prob Problem N/A Intervention/Recommendation Comments 1. Continue with [facility]-, [facility] soft chopped diet as ordered. 2. Monitor PO intake, wt, labs and skin integrity 3. F/U as low risk in 7 days, 08/18 Expected Outcomes/Goals Expected Outcomes/Goals 1. PO intake to meet at least 75% of nutritional needs. 2. Wt stability, skin to remain intact, labs to approach WNL.
[2017-08-17] MEDS: Albuterol Nebulizer 2.5mg/3mL HHN SCH ×4 (01:07→19:45)
[2017-08-17] MEDS: Pantoprazole 40 mg EC Tab PO SCH (06:41)
[2017-08-17] MEDS: INSULIN ASPART SLIDING SCALE 100 UNITS/ML UNIT SUBQ SCH ×4 (06:41→21:34)
[2017-08-17] MEDS: Budesonide 0.5 Mg/2 mL Ud HHN SCH ×2 (07:40→19:45)
[2017-08-17] MEDS: Multivitamin Tab PO SCH (09:13)
--- NOTE | 2017-08-17 19:27 | Internal Medicine Prog Note ---
Internal Medicine Subjective - Subjective Service Date: 08/17/17 Patient seen and examined:: with staff Patient is:: awake, verbal, in bed, confused Per staff patient has:: no adverse event Internal Medicine Objective - Results Result Diagrams: 08/10/17 09:18 08/10/17 09:18 Recent Labs: Laboratory Last Values WBC 9.8 Th/cmm (4.8-10.8) D 08/10/17 09:18 RBC 4.37 Mil/cmm (3.80-5.10) 08/10/17 09:18 Hgb 12.9 gm/dL (12-16) 08/10/17 09:18 Hct 38.9 % (41.0-60) L 08/10/17 09:18 MCV 89.2 fl (81-100) 08/10/17 09:18 MCH 29.6 pg (27.0-31.0) 08/10/17 09:18 MCHC Differential 33.2 pg (28.0-36.0) 08/10/17:18 RDW 15.3 % (11.5-20.0) 08/10/17 09:18 Plt Count 265 Th/cmm (150-400) 08/10/17 09:18 MPV 8.4 fl 08/10/17 09:18 Neutrophils % 69.3 % (40.0-80.0) 08/10/17 09:18 Lymphocytes % 25.0 % (20.0-50.0) 08/10/17 09:18 Monocytes % 4.0 % (2.0-10.0) 08/10/17 09:18 Eosinophils % 0.9 % (0.0-5.0) 08/10/17 09:18 Basophils % 0.8 % (0.0-2.0) 08/10/17 09:18 Sodium 134 mEq/L (136-145) L 08/10/17 09:18 Potassium 3.9 mEq/L (3.5-5.1) 08/10/17 09:18 Chloride 98 mEq/L (98-107) 08/10/17 09:18 Carbon Dioxide 29.0 mEq/L (21.0-31.0) 08/10/17 09:18 Anion Gap 10.9 (7.0-16.0) 08/10/17 09:18 BUN 8 mg/dL (7-25) 08/10/17 09:18 Creatinine 0.7 mg/dL (0.6-1.2) 08/10/17 09:18 Est GFR ( Amer) > 60.0 ml/min (>90) 08/10/17 09:18 Est GFR (Non-Af Amer) > 60.0 ml/min 08/10/17 09:18 BUN/Creatinine Ratio 11.4 08/10/17 09:18 Glucose 140 mg/dL (70-105) H 08/10/17 09:18 POC Glucose 99 MG/DL (70 - 105) 08/07/17 20:36 Hemoglobin A1c % 5.3 % (4.0-6.0) 08/06/17 16:20 Whole Bld Lactic Acid 1.02 mmol/L (0.60-1.99) 08/06/17 16:20 Calcium 9.9 mg/dL (8.6-10.3) 08/10/17 09:18 Total Bilirubin 0.5 mg/dL (0.3-1.0) 08/06/17 16:20 AST 11 U/L (13-39) L 08/06/17 16:20 ALT 7 U/L (7-52) 08/06/17 16:20 Alkaline Phosphatase 82 U/L (34-104) 08/06/17 16:20 Total Protein 7.1 gm/dL (6.0-8.3) 08/06/17 16:20 Albumin 4.6 gm/dL (3.7-5.3) 08/06/17 16:20 Globulin 2.5 gm/dL 08/06/17 16:20 Albumin/Globulin Ratio 1.8 (1.0-1.8) 08/06/17 16:20 Triglycerides 104 mg/dL (<150) 08/06/17 16:20 Cholesterol 124 mg/dL (<200) 08/06/17 16:20 LDL Cholesterol Direct 53 mg/dL (75-193) L 08/06/17 16:20 HDL Cholesterol 52 mg/dL (23-92) 08/06/17 16:20 TSH 1.14 uIU/ml (0.34-5.60) 08/06/17 16:20 Urine Source CLEAN C 08/09/17 15:45 Urine Color YELLOW 08/09/17 15:45 Urine Clarity CLEAR (CLEAR) 08/09/17 15:45 Urine pH 6.0 (4.6 - 8.0) 08/09/17 15:45 Ur Specific [place] 1.025 (1.005-1.030) 08/09/17 15:45 Urine Protein TRACE mg/dL (NEGATIVE) 08/09/17 15:45 Urine Glucose (UA) NEGATIVE mg/dL (NEGATIVE) 08/09/17 15:45 Urine Ketones NEGATIVE mg/dL (NEGATIVE) 08/09/17 15:45 Urine Blood NEGATIVE (NEGATIVE) 08/09/17 15:45 Urine Nitrate NEGATIVE (NEGATIVE) 08/09/17 15:45 Urine Bilirubin NEGATIVE (NEGATIVE) 08/09/17 15:45 Urine Urobilinogen 0.2 E.U./dL (0.2 - 1.0) 08/09/17 15:45 Ur Leukocyte Esterase NEGATIVE (NEGATIVE) 08/09/17 15:45 Urine RBC NONE SEEN /hpf (0-5) 08/09/17 15:45 Urine WBC 2-5 /hpf (0-5) 08/09/17 15:45 Ur Epithelial Cells OCCASIONAL /lpf (FEW) 08/09/17 15:45 Urine Bacteria FEW /hpf (NONE SEEN) 08/09/17 15:45 RPR NONREACTIVE (NONREACTIVE) 08/06/17 16:20 - Physical Exam Vitals and I&O: Vital Signs Temp 98.4 F 08/17/17 18:15 Pulse 70 08/17/17 18:15 Resp 18 08/17/17 18:15 BP 99/65 08/17/17 18:15 Pulse Ox 97 08/17/17 18:15 Intake & Output 08/17/17 08/17/17 08/18/17 06:59 18:59 06:59 Intake Total 180 Balance 180 Intake: Oral 180 Other: # Voids 2 # Bowel Movements 0 Active Medications: Current Medications Acetaminophen (Tylenol) 650 mg PO Q4HR PRN PRN Reason: Mild Pain / Temp above 100 Stop: 10/05/17 19:49 Last Admin: 08/13/17 16:56 Dose: 650 mg Al Hydrox/Mg Hydrox/Simethicone (Maalox) 30 ml PO Q4HR PRN PRN Reason: GI DISTRESS Stop: 10/05/17 19:49 Albuterol Sulfate (Albuterol 2.5mg/3ml Neb Ud) 2.5 mg HHN Q4H PRN PRN Reason: Shortness of Breath Stop: 10/06/17 07:54 Albuterol Sulfate (Albuterol 2.5mg/3ml Neb Ud) 2.5 mg HHN Q6HRT VERONIQUE Stop: 10/06/17 12:59 Last Admin: 08/17/17 12:12 Dose: 2.5 mg Amlodipine Besylate (Norvasc) 10 mg PO DAILY VERONIQUE Stop: 10/06/17 08:59 Last Admin: 08/17/17 09:14 Dose: 10 mg Atorvastatin Calcium (Lipitor) 20 mg PO HS VERONIQUE Stop: 10/05/17 20:59 Last Admin: 08/16/17 21:53 Dose: 20 mg Benztropine Mesylate (Cogentin) 0.5 mg PO BID VERONIQUE Stop: 10/06/17 08:59 Last Admin: 08/17/17 17:18 Dose: 0.5 mg Budesonide (Pulmicort) 0.5 mg HHN BIDRT VERONIQUE Stop: 10/06/17 08:59 Last Admin: 08/17/17 07:40 Dose: 0.5 mg Clozapine (Clozaril) 150 mg PO BID VERONIQUE Stop: 10/06/17 14:59 Last Admin: 08/17/17 17:18 Dose: 150 mg Insulin Aspart (Novolog Insulin Sliding Scale) 0 units SUBQ ACHS VERONIQUE PRN Reason: Protocol Stop: 10/05/17 20:59 Last Admin: 08/17/17 17:17 Dose: Not Given Lorazepam (Ativan) 0.5 mg PO Q4HR PRN; Protocol PRN Reason: Anxiety Stop: 09/05/17 19:49 Magnesium Hydroxide (Milk Of Magnesia) 30 ml PO HS PRN PRN Reason: Constipation Metformin HCl (Glucophage) 1,000 mg PO BIDWM VERONIQUE Stop: 10/06/17 08:59 Last Admin: 08/17/17 17:20 Dose: Not Given Miscellaneous (Lurasidone Hcl [Latuda]) 80 mg PO DAILY [facility] Stop: 10/10/17 06:43 Multivitamins/Vitamin C (Theragran) 1 tab PO DAILY VERONIQUE Stop: 10/06/17 08:59 Last Admin: 08/17/17 09:13 Dose: 1 tab Pantoprazole Sodium (Protonix) 40 mg PO QDAC [facility] Stop: 10/06/17 08:59 Last Admin: 08/17/17 06:41 Dose: 40 mg Paroxetine HCl (Paxil) 40 mg PO DAILY VERONIQUE PRN Reason: Protocol Stop: 10/06/17 08:59 Last Admin: 08/17/17 09:13 Dose: 40 mg Pioglitazone HCl (Actos) 30 mg PO DAILY VERONIQUE Stop: 10/06/17 08:59 Last Admin: 08/17/17 09:13 Dose: 30 mg Sitagliptin Phosphate (Januvia) 100 mg PO DAILY [facility] Stop: 10/06/17 08:59 Last Admin: 08/17/17 09:13 Dose: 100 mg Zolpidem Tartrate (Ambien) 5 mg PO HS PRN PRN Reason: Insomnia Stop: 10/05/17 19:49 Last Admin: 08/16/17 21:54 Dose: 5 mg General: demented HEENT: NC/AT, PERRLA, anicteric sclerae, throat clear Neck: Supple, No JVD, No thyromegaly, +2 carotid pulse wo bruit, No LAD Lungs: CTAB Cardiovascular: RRR, Normal S1, Normal S2, without murmur Abdomen: non-tender, non-distended Neurological: no change Internal Medicine Assmt/Plan - Assessment Assessment: 1.DM. 2.HTN 3.HYPERLIPIDEMEA. 4.DEMENTIA. - Plan Plan: CONTINUE ON CURRENT MEDICATION AND DIET. Nutritional Asmnt/Malnutr-PDOC - Dietary Evaluation Malnutrition Findings (Please click <Entered> for more info): Nutritional Asmnt/Malnutrition Start: 08/11/17 15: 44 Text: Status: Complete Freq: Document 08/11/17 15:44 [email or web address] (Rec: 08/11/17 15:49 ALEXANDER [facility]) Nutritional Asmnt/Malnutrition Patient General Information Nutritional Screening Moderate Risk Diagnosis psychosis Pertinent Medical Hx/Surgical Hx HTN, DM, hyperlipidemia, COPD, psychosis, dementia Subjective Information Pt seen in hallway at time of visit. Pt said she does not like the meat here. Per records, PO intake 100%. Current Diet Order/ Nutrition Support [id number], [facility] soft chopped Pertinent Medications novolog, glucophage, theragran , protonix Pertinent Labs 08/10 Na 134, K 3.9, Cl 98, BUN 8, Cr 0.8, glucose 140 / A1c 5.3 Nutritional Hx/Data Height 1.68 m Height (Calculated Centimeters) 167.6 Current Weight (lbs) 65.771 kg Weight (Calculated Kilograms) 65.8 Weight (Calculated Grams) 71528.9 [place] Body Weight 148 Body Mass Index (BMI) 23.3 Weight Status Approriate GI Symptoms GI Symptoms None Last BM 3/5 Difficult in: None Skin Integrity/Comment: intact Current %PO Good (75-100%) Estimated Nutritional Goals BEE in Kcals: Using Current wt Calories/Kcals/Kg 25-30 Kcals Calculated 0537-0241 Protein: Using Current wt Protein g/k Protein Calculated 66 Fluid: ml 1650-1980ml (1ml/kcal) Nutritional Problem No current Nutrition Prob Problem N/A Intervention/Recommendation Comments 1. Continue with [facility]-, [facility] soft chopped diet as ordered. 2. Monitor PO intake, wt, labs and skin integrity 3. F/U as low risk in 7 days, 08/18 Expected Outcomes/Goals Expected Outcomes/Goals 1. PO intake to meet at least 75% of nutritional needs. 2. Wt stability, skin to remain intact, labs to approach WNL.
--- NOTE | 2017-08-17 20:39 | Progress Notes ---
DATE: The patient seen, chart reviewed, discussed with staff. The patient noting she is feeling "better," somewhat more cooperative. Dr. Viveros saw the patient over the weekend noting that she remained unpredictable, agitated, still with evidence of psychosis. Medications were adjusted and titrated. The patient seems to be calmer today, more redirectable, any psychotic symptoms seems to be dissipating and decreasing. She is on a reasonable dose of Clozaril, which seems to be positively impacting her mood symptoms and her psychotic symptoms. She is answering questions appropriately. Denying any SI or HI. States her medications are okay. Denying any overt side effects. Stating she is sleeping somewhat better. ASSESSMENT: The patient seems to be improving, mood improved, psychotic symptoms dissipating and decreasing. She is calmer and more cooperative. PLAN: We will err on the side of caution, monitor for further 24 hours to make sure the patient is devoid of any psychotic symptoms. JOB# [id number]
[2017-08-17] MEDS: Atorvastatin Calcium 10 MG TAB PO SCH (21:28)
[2017-08-18] MEDS: Albuterol Nebulizer 2.5mg/3mL HHN SCH ×3 (00:18→14:06)
[2017-08-18] MEDS: INSULIN ASPART SLIDING SCALE 100 UNITS/ML UNIT SUBQ SCH ×2 (06:44→11:49)
[2017-08-18] MEDS: Pantoprazole 40 mg EC Tab PO SCH (06:45)
[2017-08-18] MEDS: Budesonide 0.5 Mg/2 mL Ud HHN SCH (07:45)
[2017-08-18] MEDS: Multivitamin Tab PO SCH (08:45)
--- NOTE | 2017-08-18 16:48 | Discharge Summary ---
DATE OF DISCHARGE: 08/18/2017 DATE OF DISCHARGE: 08/18/2017. JUSTIFICATION FOR HOSPITALIZATION: Aggressive behavior, disruptive and psychotic. HISTORY OF PRESENT ILLNESS: A 62-year-old female brought in from [facility], aggression, disruptive, psychotic, poor historian and noted to be somewhat confused. PAST PSYCHIATRIC HISTORY: Noted history of dementia. MEDICAL HISTORY: Noted. SOCIAL HISTORY: Coming from a care home. MENTAL STATUS EXAMINATION: Please see full psych eval for details. PROVISIONAL DIAGNOSES: Psychosis, unspecified; mood, unspecified. Also, dementia. HOSPITAL COURSE: After initial assessment, the patient was initiated on medications including Paxil for her mood symptoms, Clozaril for psychotic symptoms. Over the course of the hospitalization, her mood improved, affect improved, getting along well with staff and peers, calmer, more cooperative. Staff noting robust improvement. No longer with any psychotic symptoms, no SI, no HI. No agitation, no combative behaviors. Toward the latter end of her hospitalization, she was devoid of any violent symptoms and no mood symptoms indicative of poor impulse control and she was discharged. CONDITION UPON DISCHARGE: Improved. The patient with better ADLs, good eye contact, speech within normal limits, calmer, friendly and cooperative. Mood "fine." Affect constricted. Thought processes remained, somewhat disoriented, but more engaged certainly and answering questions appropriately. No SI, no HI, no intent, no plan. No psychotic symptoms. Insight and judgment improved. The patient more hopeful. DISCHARGE DIAGNOSES: Psychosis, unspecified, rule out schizophrenia; also mood, unspecified; major depression, unspecified; anxiety, unspecified. Also, with history of dementia. Under medical, please see full H and P including dementia. PROGNOSIS: The patient follows up with outpatient mental health services and remains compliant with treatment. Prognosis will improve, otherwise guarded. [facility]# [id number]
== END 2017-08-18 14:45 | disposition home or self-care (01) | DRG 885 ==
LOC: ER 15:33 → GERO2 17:31
PROVIDERS: ADMIT Psychiatry & Neurology Psychiatry; ATTEND Psychiatry & Neurology Psychiatry
DX: F29 Unspecified psychosis not due to a substance or known physiological condition (principal); F03.91 Unspecified dementia, unspecified severity, with behavioral disturbance; E87.1 Hypo-osmolality and hyponatremia; E11.9 Type 2 diabetes mellitus without complications; I10 Essential (primary) hypertension; E78.5 Hyperlipidemia, unspecified; F32.9 Major depressive disorder, single episode, unspecified; F41.9 Anxiety disorder, unspecified; J44.9 Chronic obstructive pulmonary disease, unspecified; Z87.891 Personal history of nicotine dependence
CPT/HCPCS: 36415-UA; 71045-TC; 80048-TC; 80053-TC; 80061-TC; 81001-TC; 82948-90; 83036-90; 83605; 84443-TC; 85025-TC; 86592-TC; 93005; 94640; 94760; J1815; J7613; Z7610

== ENCOUNTER 2017-10-26 18:19 | Inpatient (IN) | payer MEDICARE, OTHER ==
--- NOTE | 2017-10-26 18:50 | ED Physician Chart ---
ED Chief Complaint/HPI - Patient Information Date Seen:: 10/26/17 Time Seen:: 18:00 Chief Complaint:: Agitation History of Present Illness:: onset x 2 days of agitation and hostile behavior; no report of trauma, H/As, S/T , neck pain, C/P, SOB, Abd. Pain, A/N/V/D/C, fever, chills, or urinary s/s Allergies:: Allergies Allergy/AdvReac Type Severity Reaction Status Date / Time No Known Allergies Allergy Verified 08/06/17 16:31 Historian:: Patient Review:: Nurse's Note Reviewed <Marv Bob - Last Filed: 10/26/17 18:47> - Patient Information Allergies:: Allergies Allergy/AdvReac Type Severity Reaction Status Date / Time Penicillins Allergy Verified 10/26/17 18:59 Sulfa (Sulfonamide Allergy Verified 10/26/17 18:59 Antibiotics) Vitals:: Vital Signs - 8 hr 10/26/17 18:59 Temp 99.9 F HR 103 RR 19 BP 104/40 O2 Sat % 93 <Myles Albert - Last Filed: 10/26/17 21:40> ED Review of Systems - Review of Systems General/Constitutional: No fever, No chills, No weight loss, No weakness, No diaphoresis, No edema, No loss of appetite Skin: No skin lesions, No rash, No bruising Head: No headache, No light-headedness Eyes: No loss of vision, No pain, No diplopia ENT: No earache, No nasal drainage, No sore throat, No tinnitus Neck: No neck pain, No swelling, No thyromegaly, No stiffness, No mass noted Cardio Vascular: No chest pain, No palpitations, No PND, No orthopnea, No edema Pulmonary: No SOB, No cough, No sputum, No wheezing GI: No nausea, No vomiting, No diarrhea, No pain, No melena, No hematochezia, No constipation, No hematemesis G/U: No dysuria, No frequency, No hematuria, No nacturia Hide Selector: No vaginal discharge, No abnormal vaginal bleed, No contraction Musculoskeletal: No bone or joint pain, No back pain, No muscle pain Endocrine: No polyuria, No polydipsia Psychiatric: Prior psych history, Depression, Anxiety, No suicidal ideation, No homicidal ideation, No auditory hallucination, No visual hallucination Hematopoietic: No bruising, No lymphadenopathy Allergic/Immuno: No urticaria, No angioedema Neurological: No syncope, No focal symptoms, No weakness, No paresthesia, No headache, No seizure, No dizziness, No confusion, No vertigo <Marv Bob Last Filed: 10/26/17 18:47> ED Past Medical History - Past Medical History Obtainable: Yes Past Medical History: HTN Family History: HTN Social History: Non Smoker, No Alcohol, No Drug Use, Single, Care Facility Surgical History: None Psychiatricy History: Depression, Bipolar Medication: Reviewed <Marv Bob Last Filed: 10/26/17 18:47> Family Medical History - Family Member Mother History Unknown: Yes Ethnicity: Non- Living Status: Father History Unknown: Yes <Marv Bob Filed: 10/26/17 18:47> ED Physical Exam - Physical Examination General/Constitutional: Awake, Well-developed, well-nourished, Alert, No distress, GCS 15, Non-toxic appearing, Ambulatory Head: Atraumatic Eyes: Lids, conjuctiva normal, PERRL, EOMI Skin: Nl inspection, No rash, No skin lesions, No ecchymosis, Well hydrated, No lymphadenopathy ENMT: External ears, nose nl, TM canals nl, Nasal exam nl, Lips, teeth, gums nl , Oropharynx nl, Tonsils nl Neck: Nontender, Full ROM w/o pain, No JVD, No nuchal rigidity, No bruit, No mass, No stridor Respiratory: Nl effort/Exclusion, Clear to Auscultation, No Wheeze/Rhonchi/Rales Cardio Vascular: RRR, No murmur, gallop, rubs, NL S1 S2, Carotid/Femoral/Distal pulses equal bilaterally GI: No tenderness/rebounding/guarding, No organomegaly, No hernia, Normal BS's, Nondistended, No mass/bruits, No McBurney tenderness : No CVA tenderness Extremities: No tenderness or effusion, Full ROM, normal strength in all extremities, No edema, Normal digits & nails Neuro/Psych: Alert/oriented, DTR's symmetric, Normal sensory exam, Normal motor strength, Judgement/insight normal, Mood normal, Normal gait, No focal deficits Other Neuro/Psych comments:: + Psychomotor Agitation; no SIs; Mood/Affect: Rafia Misc: Normal back, No paraspinal tenderness <Marv Bob - Last Filed: 10/26/17 18:47> ED Labs/Radiology/EKG Results - Lab Results Results: Laboratory Tests 10/26/17 10/26/17 19:30 19:30 WBC 9.1 RBC 4.45 Hgb 13.3 Hct 39.8 L MCV 89.3 MCH 29.9 MCHC Differential 33.5 RDW 15.2 Plt Count 213 MPV 8.8 Neutrophils % 71.2 Lymphocytes % 21.5 Monocytes % 5.7 Eosinophils % 1.3 Basophils % 0.3 Sodium 136 Potassium 4.1 Chloride 102 Carbon Dioxide 28.2 Anion Gap 9.9 BUN 12 Creatinine 0.7 Est GFR ( Amer) > 60.0 Est GFR (Non-Af Amer) > 60.0 BUN/Creatinine Ratio 17.1 Glucose 165 H Calcium 9.7 Total Bilirubin 0.4 AST 12 L ALT 12 Alkaline Phosphatase 78 Total Protein 6.9 Albumin 4.0 Globulin 2.9 Albumin/Globulin Ratio 1.4 Triglycerides 75 Cholesterol 150 LDL Cholesterol Direct 74 L HDL Cholesterol 55 Salicylates < 25.0 L Acetaminophen < 10.0 L Ethyl Alcohol < 10 - EKG Interpretations Rate & Rhythm: normal sinus rhythm with a rate of 82 Assaria: normal Comments:: Possible old anterior infarct <Myles Albert - Last Filed: 10/26/17 21:40> ED Assessment - Assessment General Assessment: Patient is alert and oriented to the exact date. Patient is a former smoker. Eyes ears nose and throat normal except patient is edentulous. Neck no jugular venous distention. Chest diffusely decreased breath sounds. Heart regular rhythm no murmur or extra sound. Abdomen soft nontender no organomegaly. Extremities no edema. <Myles Albert - Last Filed: 10/26/17 21:40> ED Septic Shock - . Is Septic Shock (SBP<90, OR Lactate>4 mmol\L) present?: No <Marv Bob - Last Filed: 10/26/17 18:47> - <6hrs of presentation: Vital Signs: Vital Signs - 8 hr 10/26/17 18:59 Temp 99.9 F HR 103 RR 19 BP 104/40 O2 Sat % 93 <Myles Albert - Last Filed: 10/26/17 21:40> ED Reassessment (Disposition) - Reassessment Reassessment:: Patient's EKG is abnormal but she certainly has not had an acute myocardial infarction and she has no ST elevation. 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 - Diagnosis Diagnosis:: Aggressive behavior; urinary tract infection - Aftercare/Follow up Instructions Aftercare/Follow-Up Instructions:: Refer to Discharge Instructions - Patient Disposition Admitted to:: [facility] Admitting Medical Physician:: Rosetta Reyes Admitting Psych Physician:: Sara Caldera Condition at Disposition:: Stable, Unchanged <Myles Albert - Last Filed: 10/26/17 21:40>
[2017-10-26 19:40] LABS: % BASOPHILS 0.3 % (0.0-2.0); % EOSINOPHILS 1.3 % (0.0-5.0); % LYMPHOCYTES 21.5 % (20.0-50.0); % MONOCYTES 5.7 % (2.0-10.0); % NEUTROPHILS 71.2 % (40.0-80.0); EOSINOPHILE ABSOLUTE 0.1 Th/cmm (0.1-0.4); HEMATOCRIT 39.8 % (41.0-60); HEMOGLOBIN 13.3 gm/dL (12-16); MEAN CELL VOLUME 89.3 fl (81-100); MEAN CORPUSCULAR HEMOGLOBIN 29.9 pg (27.0-31.0); MEAN CORPUSCULAR HGB CONC 33.5 pg (28.0-36.0); MEAN PLATELET VOLUME 8.8 fl; MONOCYTE ABSOLUTE 0.5 Th/cmm (0.3-1.0); NEUTROPHILE ABSOLUTE 6.5 Th/cmm (1.8-8.0); PLATELET COUNT 213 Th/cmm (150-400); RED BLOOD COUNT 4.45 Mil/cmm (3.80-5.10); RED CELL DISTRIBUTION WIDTH 15.2 % (11.5-20.0); WHITE BLOOD COUNT 9.1 Th/cmm (4.8-10.8)
[2017-10-26 19:55] LABS: ACETAMINOPHEN < 10.0 ug/mL (10.0-30.0); ALB/GLOB RATIO 1.4 (1.0-1.8); ALKALINE PHOSPHATASE 78 U/L (34-104); ANION GAP 9.9 (7.0-16.0); BILIRUBIN,TOTAL 0.4 mg/dL (0.3-1.0); BUN - UREA NITROGEN 12 mg/dL (7-25); CALCIUM SERUM 9.7 mg/dL (8.6-10.3); CARBON DIOXIDE 28.2 mEq/L (21.0-31.0); CHLORIDE 102 mEq/L (98-107); CHOLESTEROL 150 mg/dL (<200); CREATININE - SERUM 0.7 mg/dL (0.6-1.2); GFR AFRICAN-AMERICAN > 60.0 ml/min (>90); GFR NON AFRICAN-AMERICAN > 60.0 ml/min; GLUCOSE 165 mg/dL (70-105); HDL -HIGH DENSITY LIPOPROTEIN 55 mg/dL (23-92); POTASSIUM SERUM 4.1 mEq/L (3.5-5.1); SGOT 12 U/L (13-39); SGPT/ALT 12 U/L (7-52); SODIUM SERUM 136 mEq/L (136-145); TOTAL PROTEIN,SERUM 6.9 gm/dL (6.0-8.3); TRIGLYCERIDES 75 mg/dL (<150)
[2017-10-26 19:56] LABS: SALICYLATES (ASPIRIN) < 25.0 mg/L (30.0-100.0)
[2017-10-26 21:17] LABS: URINE MICROSCOPIC INDICATED? YES; URINE SOURCE CLEAN C
[2017-10-26 21:18] LABS: URINE BILIRUBIN NEGATIVE (NEGATIVE); URINE BLOOD NEGATIVE (NEGATIVE); URINE GLUCOSE (UA) NEGATIVE (NEGATIVE); URINE KETONE NEGATIVE (NEGATIVE); URINE PROTEIN NEGATIVE (NEGATIVE); URINE UROBILINOGEN 0.2 E.U./dL (0.2 - 1.0)
[2017-10-26 21:19] LABS: URINE CLARITY CLEAR (CLEAR); URINE COLOR YELLOW; URINE LEUKOCYTE ESTERASE MODERATE (NEGATIVE); URINE NITRATE NEGATIVE (NEGATIVE)
[2017-10-26 21:36] LABS: URINE RBC 0-2 /hpf (0-5)
[2017-10-26 21:39] LABS: URINE BACTERIA NONE SEEN /hpf (NONE SEEN); URINE EPITHELIAL CELLS FEW /lpf (FEW)
[2017-10-26 21:45] LABS: AMPHETAMINE URINE NEGATIVE (NEGATIVE); BARBITURATES URINE NEGATIVE (NEGATIVE); BENZODIAZEPINES QUAL URINE POSITIVE (NEGATIVE); COCAINE METABOLITE QUAL URINE NEGATIVE (NEGATIVE); METHADONE URINE NEGATIVE (NEGATIVE); METHAMPHETAMINES QUAL URINE NEGATIVE (NEGATIVE); OPIATES (MORPHINE) QUAL. URINE NEGATIVE (NEGATIVE); PHENCYCLIDINE (PCP) URINE NEGATIVE (NEGATIVE); TRICYCLICS (TCA) QUAL. URINE NEGATIVE (NEGATIVE)
[2017-10-26 21:46] LABS: CANNABINOID THC NEGATIVE (NEGATIVE)
[2017-10-26 23:47] VITALS: BP 118/101
[2017-10-26] MEDS ORDERED: Magnesium Hydroxide (MOM) 30 mL UDC PO PRN (23:51)
[2017-10-26] MEDS ORDERED: Non-Formulary Item 1 EA (Albuterol Sulfate [Ventolin Hfa] 2 PUFF) IH PRN (23:59)
[2017-10-27] MEDS ORDERED: Pantoprazole 40 mg EC Tab PO PRN (00:07)
[2017-10-27] MEDS: INSULIN ASPART SLIDING SCALE 100 UNITS/ML UNIT SUBQ SCH ×3 (06:36→17:55)
[2017-10-27] MEDS ORDERED: Non-Formulary Item 1 EA (Fluticasone/Vilanterol [Breo Ellipta 200-25 Mcg Inh] 1 EACH) IH SCH (09:00)
[2017-10-27] MEDS ORDERED: LURASIDONE HCL 60 MG PO SCH (09:00)
[2017-10-27] MEDS: Multivitamin Tab PO SCH (10:00)
[2017-10-27] MEDS: MAGNESIUM 500 MG PO SCH ×2 (10:02→17:37)
[2017-10-27] MEDS: Albuterol Nebulizer 2.5mg/3mL HHN PRN (17:33)
[2017-10-27 18:46] LABS: A1C % 5.6 % (4.0-6.0)
--- NOTE | 2017-10-27 19:26 | History & Physical ---
ADMIT DATE: 10/27/2017 INTERNAL MEDICINE CONSULT REFERRING PHYSICIAN: Dr. Caldera. REASON FOR CONSULT: Medical management. HISTORY OF PRESENT ILLNESS: The patient is a 62-year-old -[place] lady with history of schizoaffective disorder, essential hypertension, type 2 diabetes, hypercholesterolemia who was transferred from her prison ([facility]) secondary to hostile behavior/noncompliance with meds. The patient is asleep, arousable, and able to answer simple questions. She denies any medical noncompliance. She currently denies any chest pain, shortness of breath, fever, chills, palpitations, and overall feels fine. PAST MEDICAL HISTORY: As noted above. PAST SURGICAL HISTORY: Include a right inguinal hernia repair and umbilical hernia repair many years ago. FAMILY HISTORY: Her dad secondary to CHF. SOCIAL HISTORY: Tobacco: She does admit to previous nicotine dependence, up to 50 years. She smoked anywhere from a pack to 4 cigarettes on a daily basis. She quit about 5 months ago. Alcohol, very seldomly. Denies any IVDA. She currently lives at prison. ALLERGIES: She is allergic to PENICILLIN, SULFA. OUTPATIENT MEDICATIONS: Hydrocortisone cream 1% b.i.d., albuterol, Ventolin 2 puffs t.i.d., atorvastatin 10 every day, Cogentin 0.5 b.i.d., Lotrimin 1% cream b.i.d., clonazepam 150 mg b.i.d., erythromycin base 0.5% t.i.d., Breo-Ellipta 200/25 mcg every day, insulin sliding scale twice a day, lorazepam 0.5 b.i.d., Latuda 60 every day, magnesium 250 b.i.d., Glucophage 500 mg b.i.d., metoprolol 25 every day, Protonix 40 every day, Paxil 40 every day, Actos 30 mg daily, Risperdal 2.5 b.i.d., Januvia 100 mg daily. REVIEW OF SYSTEMS: CONSTITUTIONAL: She denies any fever, chills, and no recent weight loss. CARDIOVASCULAR: Denies any angina, chest pain or palpitations. PULMONARY: Denies any shortness of breath, any URI symptomatology. GASTROINTESTINAL: Denies any bowel habit changes including nausea, vomiting, abdominal pain, diarrhea or constipation. GENITOURINARY: Denies any bowel habit changes including dysuria or hematuria. NEUROLOGIC: No changes in vision, no syncope. PHYSICAL EXAMINATION: VITAL SIGNS: Temperature 97.0. She is afebrile, pulse 88, respirations 20, BP 118/101 with sats of 94% on room air. GENERAL: A well-developed, well-nourished female, asleep, arousable, not in acute distress. HEAD AND NECK: Normocephalic, atraumatic. Pupils are reactive to light. Wounds are intact. Oropharynx moist and clear. CARDIAC: Regular rate and rhythm with distant sounds. LUNGS: Diminished, but clear to auscultation bilaterally. ABDOMEN: Soft, supple, nontender, nondistended, normoactive bowel sounds. EXTREMITIES: Lower extremities: No pedal edema. NEUROLOGIC: Grossly intact and nonfocal. Cranial nerves 2-12 are within normal limits. LABORATORY DATA: CBC was essentially within normal limits. Chem-7 was within normal limits. Glucose 165, AST 12, ALT 12, alkaline phosphatase 78, cholesterol 150, LDL 74, HDL 55. TSH 1.47. UA shows moderate leukocyte esterase, 10-25 wbc's, U-tox positive for benzos. DIAGNOSTICS: EKG shows a sinus rhythm of 82. ASSESSMENT: 1. Psych decompensation with hostile behavior and medical noncompliance. 2. History of schizoaffective disorder. 3. Urinary tract infection. 4. History of previous nicotine dependence/likely chronic obstructive pulmonary disease. 5. History of hypertension. 6. History of type 2 diabetes. 7. History of hypercholesterolemia. PLAN: The patient has been admitted to [facility] for management and care. At this time, the patient will remain on her current home medications as scheduled. I will start also the patient on Cipro 250 b.i.d. x 7 days and will follow urine cultures and sensitivities. JOB# [id number] MTDSejal
[2017-10-27] MEDS: Budesonide 0.5 Mg/2 mL Ud HHN SCH (19:33)
[2017-10-27] MEDS: Atorvastatin Calcium 10 MG TAB PO SCH (20:40)
[2017-10-27] MEDS: Maalox 30 mL Cup PO PRN (20:57)
--- NOTE | 2017-10-27 21:19 | Psychosocial Evaluation ---
DATE OF SERVICE: 10/27/2017 CHIEF COMPLAINT: "I am fine." HISTORY OF PRESENT ILLNESS: The patient is a 62-year-old female who apparently was transferred from [facility] for increased agitation and usually resides in assisted living, has become more angry, uncooperative, has been off her psychiatric medications for 1 week, she started to decompensate. The patient now in a psychiatric hospital. The patient admits to feeling anxious and angry at times and she appears very paranoid, but she denies hearing voices. PAST PSYCHIATRIC HISTORY: Multiple hospitalizations, history of schizoaffective disorder. PAST MEDICAL HISTORY: Medically cleared in the ER. PSYCHOSOCIAL HISTORY: The patient resides at [facility]. MENTAL STATUS EXAMINATION: Speech is fluent, somewhat monotonous. Affect constricted. The patient appears to be suspicious and guarded, but no other hallucinations. She is oriented to person being in the hospital. She knows her age. She was uncooperative with the rest of memory testing. The patient's strengths: The patient is passively accepting treatment. The patient's weaknesses, lack of compliance. ASSESSMENT: Schizoaffective disorder. MEDICAL: As per medical history. Stress is severe. PLAN: We will admit the patient for hospitalization. We will start individual and group therapy, assess psychopharmacological intervention. ESTIMATED LENGTH OF STAY: 7 days. CRITERIA FOR DISCHARGE: Improved condition. No agitation, no aggressive behavior, but a bit care for self and safe disposition, outpatient treatment plan. [facility]# [id number]
[2017-10-28] MEDS: Budesonide 0.5 Mg/2 mL Ud HHN SCH ×2 (07:28→19:11)
[2017-10-28] MEDS: Multivitamin Tab PO SCH (09:33)
[2017-10-28] MEDS ORDERED: Probiotic Screen MC PRN (10:03)
[2017-10-28] MEDS: INSULIN ASPART SLIDING SCALE 100 UNITS/ML UNIT SUBQ SCH ×2 (11:30→17:13)
--- NOTE | 2017-10-28 18:19 | Progress Notes ---
DATE: 10/28/2017 PSYCHIATRIC PROGRESS NOTE SUBJECTIVE: Staff was spoken to. The patient is interviewed. Mood is noted to be irritable. Affect is constricted. The patient continues to be paranoid, isolative, and withdrawn. Insight and judgment at this time are noted to be still impaired. Paranoid delusions are noted, but denies any command hallucinations. The patient is currently on clonazepam 150 mg twice a day and is able to tolerate. Assessment, the patient is still grossly psychotic. Plan to continue the patient with supportive therapy and change the dose on the Paxil to 20 mg in view of the patient being very tired and sleeping all the time. ASSESSMENT: The patient is still psychotic and impulsive and mildly depressed. PLAN: To continue the patient with current medications. Encouraged the patient to verbalize the concerns rather than to act out. JOB# [id number]
[2017-10-28] MEDS: Atorvastatin Calcium 10 MG TAB PO SCH (21:04)
--- NOTE | 2017-10-29 01:25 | Consultation ---
DATE OF CONSULTATION: 10/28/2017 REQUESTING PHYSICIAN: Liseth De Santiago MD TYPE OF CONSULTATION: Psychology. HISTORY OF PRESENT ILLNESS: The patient is a 62-year-old female. The patient was transferred from [facility] due to increased agitation. The patient is a resident of an assisted living. The following is by record review and by the patient's self report. According to the staff at [facility], the patient had become more angry and uncooperative. According to record, the patient began to decompensate due to being off her psychiatric medications for approximately one week. The patient presents as suspicious and anxious as well as intermittently angry and agitated. The patient denied any suicidal ideation, plan or intention. The patient insists that she is doing okay and that she does not need to be hospitalized. PAST MEDICAL HISTORY: Please see history and physical. PAST PSYCHIATRIC HISTORY: The patient has a history of previous hospitalizations. The patient has a history of schizoaffective disorder. SUBSTANCE ABUSE HISTORY: The patient denied any history. PSYCHOSOCIAL HISTORY: The patient is a resident of a [facility], specific name is unknown at the time of this interview. The patient did not answer questions about occupational or educational history or zoroastrianism affiliation. The patient denied any history of physical or sexual abuse. The patient denies any current legal problems. The patient did not respond to questions about support system including family support or family relationships. MENTAL STATUS EXAMINATION: The patient appears to be her stated age. The patient's attitude is guarded. Eye contact is fair. Speech is spontaneous. The patient's mood is irritable. Affect is constricted. The patient denied any auditory or visual hallucinations. She denied any suicidal ideation. It appears the patient is exhibiting some paranoid ideation. The patient's sensorium is alert and oriented to self and place only. Impulse control is poor. Concentration is poor. The patient did not participate in the memory assessment. The patient did not participate in the interpretation of proverbs. Insight is poor. Judgment is poor. DIAGNOSTIC IMPRESSION: AXIS I: History of schizoaffective disorder. AXIS II: Deferred. AXIS III: Please see history and physical. TREATMENT PLAN: The patient has been seen by Dr. De Santiago for psychiatric evaluation and for the management of the patient's psychotropic medications. We will provide supportive psychotherapy as well as individual and group therapy, which will include reality testing, reality orientation and reality integration. We will provide coping strategies and stress management skills for the patient to become compliant with her care and treatment. We will provide coping skills for chronic long-term mental illness as well as for phase of life issues. We will continue to provide supportive therapy throughout the patient's hospital stay. We encouraged the patient to be able to demonstrate emotional and self-regulation prior to discharge with no aggressive behavior or agitation. Thank you, Dr. De Santiago for this consult and the opportunity to participate with you in this patient's care. JOB# [id number] KING
[2017-10-29] MEDS: Budesonide 0.5 Mg/2 mL Ud HHN SCH ×2 (07:58→19:18)
[2017-10-29] MEDS: Lactobacillus Rhamnosus GG 15 Billion CFU CAP.SPRINK PO SCH (09:07)
[2017-10-29] MEDS: Multivitamin Tab PO SCH (09:11)
[2017-10-29] MEDS: INSULIN ASPART SLIDING SCALE 100 UNITS/ML UNIT SUBQ SCH (11:38)
--- NOTE | 2017-10-29 14:13 | Progress Notes ---
DATE: 10/29/2017 PSYCHIATRIC PROGRESS NOTE SUBJECTIVE: Staff was spoken to. The patient is interviewed. Mood is noted to be irritable. Affect is constricted. The patient is isolative and withdrawn. Insight and judgment noted to be still impaired. The patient is still responding to internal stimuli. The patient is currently on Clozaril 150 mg twice a day and has been able to tolerate the medication. The patient is stating that she is too sleepy and tired and hence the dose of the Risperdal is going to be changed to 2 mg b.i.d. The patient is going to be continued only on 20 mg of the Paxil. The patient is going to be closely monitored. ASSESSMENT: The patient is still responding to internal stimuli, but this morning she feels depressed. PLAN: To continue the patient with supportive therapy. Encouraged the patient to verbalize the concerns rather than to act out. [facility]# [id number]
[2017-10-29] MEDS: Albuterol Nebulizer 2.5mg/3mL HHN PRN (16:16)
[2017-10-29] MEDS: Atorvastatin Calcium 10 MG TAB PO SCH (20:51)
[2017-10-30] MEDS: INSULIN ASPART SLIDING SCALE 100 UNITS/ML UNIT SUBQ SCH ×2 (06:37→17:12)
[2017-10-30] MEDS: Budesonide 0.5 Mg/2 mL Ud HHN SCH ×2 (07:15→20:24)
[2017-10-30] MEDS: Multivitamin Tab PO SCH (09:22)
[2017-10-30] MEDS: Lactobacillus Rhamnosus GG 15 Billion CFU CAP.SPRINK PO SCH (09:22)
[2017-10-30] MEDS: Atorvastatin Calcium 10 MG TAB PO SCH (21:17)
--- NOTE | 2017-10-31 00:22 | Progress Notes ---
DATE: 10/30/2017 SUBJECTIVE: Staff was spoken to. The patient is interviewed. Mood is irritable. Affect is constricted. Coping skills are noted to be extremely poor. The patient is isolative and withdrawn. Insight and judgment at this time are noted to be still impaired. Impulse control is limited. The patient has paranoid delusions, but denies any command hallucinations today. ASSESSMENT: The patient is still aggressive, psychotic and impulsive. PLAN: To continue the patient with supportive therapy, encouraged the patient to verbalize the concerns rather than to act out. JOB# [id number]
[2017-10-31] MEDS: INSULIN ASPART SLIDING SCALE 100 UNITS/ML UNIT SUBQ SCH ×2 (06:44→17:31)
[2017-10-31] MEDS: Budesonide 0.5 Mg/2 mL Ud HHN SCH ×3 (06:46→21:20)
[2017-10-31] MEDS: Multivitamin Tab PO SCH (09:46)
[2017-10-31] MEDS: Lactobacillus Rhamnosus GG 15 Billion CFU CAP.SPRINK PO SCH (09:47)
[2017-10-31] MEDS: Albuterol Nebulizer 2.5mg/3mL HHN PRN (16:48)
--- NOTE | 2017-10-31 17:24 | Progress Notes ---
DATE: 10/31/2017 SUBJECTIVE: Staff was spoken to. The patient is interviewed. Mood is noted to be irritable. Affect is constricted. Insight and judgment are noted to be still impaired. Impulse control is noted to be limited. The patient has been isolative and withdrawn. No side effects to the medications are noted. The patient is responding to internal stimuli. ASSESSMENT: The patient is currently on Clozaril. PLAN: To continue the patient with the current medications and followup. JOB# [id number]
[2017-10-31] MEDS: Gentamicin 0.3% Ophth Soln 5mL Bottle EACH EYE SCH (17:32)
[2017-10-31] MEDS: Atorvastatin Calcium 10 MG TAB PO SCH (20:34)
[2017-11-01] MEDS: Budesonide 0.5 Mg/2 mL Ud HHN SCH ×2 (06:31→19:55)
[2017-11-01] MEDS: INSULIN ASPART SLIDING SCALE 100 UNITS/ML UNIT SUBQ SCH ×2 (06:43→17:06)
[2017-11-01] MEDS: Gentamicin 0.3% Ophth Soln 5mL Bottle EACH EYE SCH ×4 (06:44→18:47)
[2017-11-01] MEDS: Lactobacillus Rhamnosus GG 15 Billion CFU CAP.SPRINK PO SCH (08:36)
[2017-11-01] MEDS: Multivitamin Tab PO SCH (08:42)
--- NOTE | 2017-11-01 18:41 | Progress Notes ---
DATE: 11/01/2017 SUBJECTIVE: Staff was spoken to. The patient is interviewed. Mood is noted to be irritable. Affect is constricted. The patient is stating that he is having shortness of breath. The patient wants to do the breathing treatment 4 times a day because of her COPD. The patient has paranoid delusions, but denies any command hallucinations today. The patient is noted to be easily upset. ASSESSMENT: The patient is still psychotic. PLAN: To continue the patient with the Clozaril and followup. JOB# [id number]
[2017-11-01] MEDS: Atorvastatin Calcium 10 MG TAB PO SCH (21:28)
[2017-11-02] MEDS: Albuterol Nebulizer 2.5mg/3mL HHN PRN (04:49)
[2017-11-02] MEDS: Gentamicin 0.3% Ophth Soln 5mL Bottle EACH EYE SCH ×5 (06:13→17:38)
[2017-11-02] MEDS: INSULIN ASPART SLIDING SCALE 100 UNITS/ML UNIT SUBQ SCH ×2 (06:37→17:27)
[2017-11-02] MEDS: Lactobacillus Rhamnosus GG 15 Billion CFU CAP.SPRINK PO SCH (08:23)
[2017-11-02] MEDS: Multivitamin Tab PO SCH (08:26)
[2017-11-02] MEDS: Budesonide 0.5 Mg/2 mL Ud HHN SCH ×2 (12:13→20:13)
--- NOTE | 2017-11-02 17:14 | Progress Notes ---
DATE: 11/02/2017 PSYCHIATRIC PROGRESS NOTE SUBJECTIVE: Staff was spoken to. The patient is interviewed. Mood is noted to be irritable. Affect is constricted. The patient is stating that she is having anxiety and shortness of breath. The patient wants to have the breathing treatments more often insight and judgment at this time are noted still impaired has paranoia, but denies any command hallucinations. No side effects to the medications are noted. ASSESSMENT: The patient is still psychotic. PLAN: To continue the patient with the supportive therapy, encourage the patient to oblique the concerns rather than to act out. JOB# [id number]
[2017-11-02] MEDS: Atorvastatin Calcium 10 MG TAB PO SCH (21:04)
[2017-11-03] MEDS: Gentamicin 0.3% Ophth Soln 5mL Bottle EACH EYE SCH ×4 (01:00→17:34)
[2017-11-03] MEDS: Albuterol Nebulizer 2.5mg/3mL HHN PRN ×2 (01:15→15:58)
[2017-11-03] MEDS: INSULIN ASPART SLIDING SCALE 100 UNITS/ML UNIT SUBQ SCH ×2 (05:59→16:54)
[2017-11-03] MEDS: Budesonide 0.5 Mg/2 mL Ud HHN SCH ×2 (07:23→20:19)
[2017-11-03] MEDS: Lactobacillus Rhamnosus GG 15 Billion CFU CAP.SPRINK PO SCH (09:10)
[2017-11-03] MEDS: Multivitamin Tab PO SCH (09:13)
[2017-11-03] MEDS: Atorvastatin Calcium 10 MG TAB PO SCH (20:36)
--- NOTE | 2017-11-03 21:46 | Progress Notes ---
DATE: 11/03/2017 SUBJECTIVE: Staff was spoken to. The patient is interviewed. Mood is noted the last irritable, but the patient continues to be very paranoid. Insight and judgment at this time are noted to be still impaired. Impulse control is noted to be limited. Coping skills are noted to be limited. ASSESSMENT: The patient is still paranoid. PLAN: To continue the patient with the supportive therapy and followup. [facility]# [id number]
[2017-11-04] MEDS: Gentamicin 0.3% Ophth Soln 5mL Bottle EACH EYE SCH ×4 (01:00→18:13)
[2017-11-04] MEDS: Albuterol Nebulizer 2.5mg/3mL HHN PRN ×2 (03:47→11:20)
[2017-11-04] MEDS: INSULIN ASPART SLIDING SCALE 100 UNITS/ML UNIT SUBQ SCH ×2 (06:29→18:13)
[2017-11-04] MEDS: Budesonide 0.5 Mg/2 mL Ud HHN SCH ×2 (07:21→19:30)
[2017-11-04 08:01] LABS: % BASOPHILS 0.3 % (0.0-2.0); % LYMPHOCYTES 26.1 % (20.0-50.0); % MONOCYTES 7.4 % (2.0-10.0); % NEUTROPHILS 65.2 % (40.0-80.0); EOSINOPHILE ABSOLUTE 0.1 Th/cmm (0.1-0.4); HEMATOCRIT 38.8 % (41.0-60); HEMOGLOBIN 12.9 gm/dL (12-16); MEAN CELL VOLUME 88.6 fl (81-100); MEAN CORPUSCULAR HEMOGLOBIN 29.5 pg (27.0-31.0); MEAN CORPUSCULAR HGB CONC 33.3 pg (28.0-36.0); MONOCYTE ABSOLUTE 0.6 Th/cmm (0.3-1.0); NEUTROPHILE ABSOLUTE 5.1 Th/cmm (1.8-8.0); PLATELET COUNT 215 Th/cmm (150-400); RED BLOOD COUNT 4.38 Mil/cmm (3.80-5.10); RED CELL DISTRIBUTION WIDTH 15.1 % (11.5-20.0); WHITE BLOOD COUNT 7.8 Th/cmm (4.8-10.8)
[2017-11-04] MEDS: Lactobacillus Rhamnosus GG 15 Billion CFU CAP.SPRINK PO SCH (09:17)
[2017-11-04] MEDS: Multivitamin Tab PO SCH (10:07)
[2017-11-04] MEDS: Atorvastatin Calcium 10 MG TAB PO SCH (20:44)
--- NOTE | 2017-11-05 00:18 | Progress Notes ---
DATE: 11/04/2017 PSYCHIATRIC PROGRESS NOTE SUBJECTIVE: Staff was spoken to. The patient is interviewed. Mood is noted to be less irritable. Affect is appropriate. The patient's coping skills are noted to be improving. Sleep and appetite are also noted to be fair. No major side effects to the medications are noted. The patient's anxiety symptoms are coming under control. ASSESSMENT: The patient's psychosis is resolving. PLAN: To continue the patient with the Clozaril and followup. JOB# [id number]
[2017-11-05] MEDS: INSULIN ASPART SLIDING SCALE 100 UNITS/ML UNIT SUBQ SCH ×2 (06:13→17:09)
[2017-11-05] MEDS: Gentamicin 0.3% Ophth Soln 5mL Bottle EACH EYE SCH ×4 (06:13→17:11)
[2017-11-05] MEDS: Budesonide 0.5 Mg/2 mL Ud HHN SCH ×2 (06:59→20:02)
[2017-11-05] MEDS: Multivitamin Tab PO SCH (08:20)
[2017-11-05] MEDS: Lactobacillus Rhamnosus GG 15 Billion CFU CAP.SPRINK PO SCH (08:20)
[2017-11-05] MEDS: Albuterol Nebulizer 2.5mg/3mL HHN PRN ×2 (10:47→13:54)
[2017-11-05] MEDS: Maalox 30 mL Cup PO PRN (13:39)
[2017-11-05] MEDS: Atorvastatin Calcium 10 MG TAB PO SCH (20:21)
[2017-11-06] MEDS: Gentamicin 0.3% Ophth Soln 5mL Bottle EACH EYE SCH ×3 (00:30→13:22)
--- NOTE | 2017-11-06 03:21 | Progress Notes ---
DATE: 11/05/2017 SUBJECTIVE: Staff was spoken to. The patient is interviewed. Mood is noted to be less irritable. Affect is appropriate. The patient has paranoid delusions, but denies any command hallucinations. The patient has been presenting with anxiety, saying that she needed more oxygen treatments. ASSESSMENT: The patient is still psychotic. PLAN: To continue the patient with the supportive therapy, encouraged the patient to verbalize the concerns rather than to act out. JOB# [id number]
[2017-11-06] MEDS: Albuterol Nebulizer 2.5mg/3mL HHN PRN (03:43)
[2017-11-06] MEDS: INSULIN ASPART SLIDING SCALE 100 UNITS/ML UNIT SUBQ SCH ×2 (06:17→17:11)
[2017-11-06] MEDS: Budesonide 0.5 Mg/2 mL Ud HHN SCH ×2 (07:24→18:40)
[2017-11-06] MEDS: Lactobacillus Rhamnosus GG 15 Billion CFU CAP.SPRINK PO SCH (10:09)
[2017-11-06] MEDS: Multivitamin Tab PO SCH (10:10)
[2017-11-06] MEDS: Maalox 30 mL Cup PO PRN (10:25)
[2017-11-06] MEDS: Atorvastatin Calcium 10 MG TAB PO SCH (20:16)
--- NOTE | 2017-11-06 22:49 | Progress Notes ---
DATE: 11/06/2017 PSYCHIATRIC PROGRESS NOTE SUBJECTIVE: Staff was spoken to. The patient is interviewed. Mood is noted to be irritable. Affect is constricted. The patient has paranoid delusions, but denies any command hallucinations. The patient is reporting that the minute she wakes up she has been feeling very dizzy and does not want any more medications. The patient is not presenting with any command hallucinations. The patient is currently on olanzapine 150 mg twice a day and possibly this one is going to be increased to 200 mg twice a day and the patient is going to be closely monitored and will be encouraged to participate in the groups and verbalize the concerns rather than to act out. ASSESSMENT: The patient is going to be closely monitored with these medications. PLAN: I encouraged her to verbalize the concerns rather than to act out. The Risperdal is going to be slowly decrease and the patient is going to be closely monitored for any side effects. JOB# [id number]
[2017-11-07] MEDS: Gentamicin 0.3% Ophth Soln 5mL Bottle EACH EYE SCH ×3 (00:15→16:29)
[2017-11-07] MEDS: INSULIN ASPART SLIDING SCALE 100 UNITS/ML UNIT SUBQ SCH ×2 (06:00→17:16)
[2017-11-07] MEDS: Budesonide 0.5 Mg/2 mL Ud HHN SCH ×2 (06:40→19:14)
[2017-11-07] MEDS: Multivitamin Tab PO SCH (08:35)
[2017-11-07] MEDS: Lactobacillus Rhamnosus GG 15 Billion CFU CAP.SPRINK PO SCH (08:35)
--- NOTE | 2017-11-07 19:03 | Progress Notes ---
DATE: 11/07/2017 PSYCHIATRIC PROGRESS NOTE SUBJECTIVE: Staff was spoken to. The patient is interviewed. Mood is noted to be irritable. Affect is constricted. Today, insight and judgment are noted to be still improving. Impulse control seems to be fair. The patient has been stating that the medications have been making her too drowsy and I have tried to cut the medications down and then Clozaril has been increased to 200 mg twice a day and I have cut down on the Paxil to 20 mg daily and Risperdal has been given 1 mg and we will be observing with the changes in the medications and closely monitor the patient's behavior. ASSESSMENT: The patient is still very paranoid, but denies any command hallucinations. PLAN: To continue the patient with the supportive therapy and followup. JOB# [id number]
[2017-11-07] MEDS: Atorvastatin Calcium 10 MG TAB PO SCH (20:54)
[2017-11-08] MEDS: Albuterol Nebulizer 2.5mg/3mL HHN PRN ×2 (01:11→17:03)
[2017-11-08] MEDS: Budesonide 0.5 Mg/2 mL Ud HHN SCH ×2 (06:27→19:13)
[2017-11-08] MEDS: INSULIN ASPART SLIDING SCALE 100 UNITS/ML UNIT SUBQ SCH ×2 (06:45→17:02)
[2017-11-08] MEDS: Multivitamin Tab PO SCH (08:44)
[2017-11-08] MEDS: Lactobacillus Rhamnosus GG 15 Billion CFU CAP.SPRINK PO SCH (08:45)
--- NOTE | 2017-11-08 13:35 | Progress Notes ---
DATE: 11/08/2017 SUBJECTIVE: Staff was spoken to. The patient is interviewed. Mood is noted to be irritable. Affect is constricted. Insight and judgment are noted to be still impaired. Impulse control seems to be improving. The patient has paranoid delusions, but denies any command hallucinations. No side effects to the medications are noted. The patient is currently on the Clozaril and has been able to tolerate. CBC is noted to be within normal limits. ASSESSMENT: The patient's psychosis is resolving. PLAN: To continue the patient with the supportive therapy. Encouraged the patient to verbalize the concerns rather than to act out. JOB# [id number]
[2017-11-08] MEDS: Atorvastatin Calcium 10 MG TAB PO SCH (20:41)
[2017-11-09] MEDS: Albuterol Nebulizer 2.5mg/3mL HHN PRN (05:08)
[2017-11-09] MEDS: INSULIN ASPART SLIDING SCALE 100 UNITS/ML UNIT SUBQ SCH (06:32)
[2017-11-09] MEDS: Budesonide 0.5 Mg/2 mL Ud HHN SCH (07:03)
[2017-11-09] MEDS: Multivitamin Tab PO SCH (10:20)
[2017-11-09] MEDS: Lactobacillus Rhamnosus GG 15 Billion CFU CAP.SPRINK PO SCH (10:22)
--- NOTE | 2017-11-09 20:45 | Discharge Summary ---
DATE OF DISCHARGE: 11/09/2017 PSYCHIATRIC DISCHARGE SUMMARY IDENTIFYING DATA: The patient is a 62-year-old -[place] woman transferred from [facility] for increased agitation and paranoia. CHIEF COMPLAINT: "They are not treating me right." DIAGNOSES AT THE TIME OF ADMISSION: AXIS I: Schizophrenia, chronic paranoid type; rule out schizoaffective disorder. AXIS II: None. AXIS III: As per Dr. Reyes. HISTORY OF PRESENT ILLNESS: Please refer the 10/27/[address] De Santiago, who was covering for me. HOSPITAL COURSE AND RESPONSE TO TREATMENT: The patient has been closely monitored on the inpatient unit, provided with supportive psychotherapy. Blood work that was done at the time of the hospitalization has been monitored by Dr. Reyes and has been placed on the Clozaril, which was gradually increased to 200 mg twice a day and the patient was on Seroquel. The Risperdal has been gradually decreased to 1 mg twice a day with the medications. The patient has been observed. The patient was continued on 20 mg of the Paxil. With these medications, the patient was observed. The agitated behavior started to resolve and the patient has been able to verbalize the concerns rather than to act out at the time of the discharge. CONDITION: At the time of discharge noted to be stable. DIAGNOSES AT THE TIME OF DISCHARGE: AXIS I: Schizoaffective disorder. AXIS II: None. AXIS III: As per Dr. Reyes. AFTERCARE PLAN: The patient is discharged to custodial facility for further followup. JOB# [id number]
== END 2017-11-09 15:10 | DRG 885 ==
LOC: ER 18:19 → GERO 22:00
PROVIDERS: ADMIT Psychiatry & Neurology Psychiatry; ATTEND Psychiatry & Neurology Psychiatry
DX: F25.9 Schizoaffective disorder, unspecified (principal); N39.0 Urinary tract infection, site not specified; I10 Essential (primary) hypertension; F31.9 Bipolar disorder, unspecified; E78.00 Pure hypercholesterolemia, unspecified; E11.9 Type 2 diabetes mellitus without complications; Z88.0 Allergy status to penicillin; Z82.49 Family history of ischemic heart disease and other diseases of the circulatory system; Z88.2 Allergy status to sulfonamides; Z87.891 Personal history of nicotine dependence; Z91.19 Patient's noncompliance with other medical treatment and regimen
CPT/HCPCS: 36415-UA; 80053-TC; 80061-TC; 80307; 80320-TC; 80329-TC; 81001-TC; 82948-90; 83036-90; 84443-TC; 85025-TC; 86592-TC; 87086-90; 90899; 93005; 94760; G0410; J1815; J7613; Z7610